=== PATIENT | female | born 1945 | race Caucasian/White ===

== ENCOUNTER 2017-08-02 09:00 | Outpatient (RCR) | payer MEDICARE, SELFPAY ==
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
--- NOTE | 2017-07-08 10:33 | HP.PTREVAL ---
Fernando Robertson, It has been my pleasure to treat LUL MCNEILL over the last 5 visits for RIGHT HIP TROCHANTERIC BURSITIS AND S/P MARILEE THR'S.. Please see the progress note below for an update on the physical therapy plan of care! Subjective: PATIENT REPORTS THE POOL IS HELPING AND SHE REALLY WANTS TO DO MORE. STATES SHE HAS HAD ABOUT 30% IMPROVEMENT AT THIS POINT. SHE REPORTS NO NEW OR INCREASED PAIN. STATES SHE WAS ABLE TO GO WEAVING YESTERDAY, WENT TO [employer] BY HERSELF, HAS BEEN DRIVING AND CAN TOLERATED BEING VERTICAL LONGER INTO THE EVENING. RIGHT HIP PAIN WOKE HER UP SEVERAL TIMES LAST NIGHT BUT OVER-ALL SHE CAN CALM IT DOWN QUICKER AND EVEN THOUGH THE PAIN IS HIGH TODAY SHE STATES IT IS DEFINATELY GETTING BETTER. Objective/Function: THIS PATIENT AMBULATES INDEP'LY INTO PT WITH IMPROVED LIDA AND DECREASED RIGHT LE LIMP COMPARED TO INITIAL EVAL BUT STILL WITH SIGNIFICANT DEVIATION. NO LOB. UPON EXAM, THERE ARE NO OTHER SIGNIFICANT CHANGES BUT SHE IS TOLERATING THER EX IN THE WATER AND REPORTING DECREASED PAIN AND INCREASED FUNCTION. LEFS HAS IMPROVED FROM 22 TO 27. SHE IS HEADED THE RIGHT DIRECTION AFTER 3 POOL SESSIONS BUT STILL HAS SIGNIFICANT SYMPTOMS. Plan Plan: RECOMMEND CONTINUED AQUATIC THERAPY AND PATIENT IS AGREEABLE THEREFORE CONTINUE AQUATIC THERAPY FOR PAIN RELEIF, POSTURE CORRECTION/STRENGTHENING, INSTRUCTION IN APPROPRIATE BODY MECHANICS AND ACTIVITY MODIFICATIONS. DLS STARTING WITH A NEUTRAL SPINE PROGRESSING ROM TOLERATED. MARILEE LE ROM, STRETCHING AND STRENGTHENING. HEP INSTRUCTION. Goals Goal 1:: DECREASE C/O LOW BACK AND MARILEE HIP PAIN Goal Time Frame: 4-6 Weeks Goal Progress: Progressing Goal 2:: IMPROVE STANDING, WALKING, AND ADL FUNCTION Goal Time Frame: 4-6 Weeks Goal Progress: Progressing Goal 3:: INDEP HEP Goal Time Frame: 4-6 Weeks Goal Progress: Progressing Anticipated Interventions Patient/Client Instruction: Educate patient on: Condition, Plan of Care, Risk Factors, Benefits of Fitness Program For the Purpose of:: To improve self management Therapeutic Exercise to Include: Strength training, Balance training, Body mechanics, Postural training, Flexibilty training, Gait and locomotor training, In an aquatic setting, Active ROM, Dynamic Lumbar Stabilization For the Purpose of:: To decrease pain, To improve muscle performance and motor function, To improve ability to perform ADL's, To increase tolerance to activity/condition/position, To improve ability of physical actions for home/community/work/leisure, To improve gait and locomotor functions Please do not hesitate to contact me at [phone] by phone or if you have questions or concerns regarding this new plan of care! Sincerely, Alivia eKy
--- NOTE | 2017-08-02 09:58 | HP.PTDCSUM_ITS ---
HP - PT D/C Summary It has been my pleasure to treat LUL MCNEILL under orders from Fernando Robertson , for the diagnosis of RIGHT HIP TROCHANTERIC BURSITIS AND S/P MARILEE THR'S. for a total of 13 visit(s). Discharge Date: Please see the following information for a summary of their discharge status. - Subjective Subjective: MY BALANCE IS REALLY GOOD NOW. SHE REPORTS SHE HAS IMPROVED A LOT. NOT USING ANY AD'S NOW. SHE REPORTS SHE IS REALLY ENCOURAGED ABOUT THE PROGRESS SHE CAN CONTINUE TO MAKE. SHE DOES STILL GET BACK PAIN TOWARD THE END OF THE DAY UP TO 05/25. PATIENT REPORTS HER KNEES REALLY AREN'T HURTING ANY MORE. HER LEFT HIP ISN'T HURTING ANYMORE EITHER. MAINLY TAKING ASPIRIN AND TYLONOL FOR HER RIGHT HIP PAIN. PATIENT REPORTS SHE HAS MUCH MORE PAINFREE RIGHT HIP ROM NOW. PATIENT STATES SHE FEELS READY TO TRY TO DO HER WATER EX ON HER OWN NOW BUT STILL DECIDING WHERE TO DO IT. PATIENT IS EXPRESSING A LOT OF APPRECIATION FOR THE BENEFIT SHE HAS RECEIVED WITH PHYSICAL THERAPY. - Pain Back Pain Intensity (Out of 10): 0 Hips Pain Intensity (Out of 10): 0 Knees Pain Intensity (Out of 10): 0 - Overall Improvement % Improvement: 70 - Objective Objective/Function: ALL GOALS MET. INDEP GAIT INTO PT WITH MORE ERECT POSTURE, IMPROVED CADANCE AND NO AD'S. MILD LIMP ON RIGHT LE. PATIENT IS ABLE TO INDEP' LY TRANSFER FROM SIT TO STAND WITHOUT UE ASSIST. Motor deficit: MARILEE LE STRENGTH IS GROSSLY 5/5 WITH MMT'ING EXCEPT HIPS GRADED 4/5. NO PAIN WITH TESTING TODAY. ROM deficit: TIGHT MARILEE GASTROC SOLEUS COMPLEX'S AND HIP FLEXORS. Dural Signs: NEGATIVE RIGHT AND POSITIVE LLE. Lumbar mvmt loss: flex - NIL - MILD RIGHT LOW BACK PAIN INITIATING FORWARD FLEXION. ext - MOD. R SG - MOD TO JULIO. L SG - MOD. PROVOKES VERY MILD LEFT ANTERIOR THIGH STRAIN NOT PAIN. Core strength: POOR BUT TOLERATING STRENGTHENING PROGRAM IN THE POOL. Palpation: NO ACUTE TENDERNESS WITH PALPATION OF BACK OR HIPS. ANTICIPATE THAT PATIENT CAN CONTINUE TO IMPROVE WITH INDEP WATER EX AT THIS TIME. LEFS SCORE HAS IMPROVED FROM 27 TO 52. - Goals Goal 1:: DECREASE C/O LOW BACK AND MARILEE HIP PAIN Goal Progress: Goal Met Goal 2:: IMPROVE STANDING, WALKING, AND ADL FUNCTION Goal Progress: Goal Met Goal 3:: INDEP HEP Goal Progress: Goal Met - Plan Plan: D/C TO INDEP POOL PROGRAM. PATIENT IS AGREEABLE TO DISCHARGE. SHE CAN USE OUR POOL A [employer] SNE[employer] MEMBER BUT SHE IS LOOKING FOR ALTERNATIVES TOO. - D/C Information If there are questions or concerns regarding this patient's physical therapy, please feel free to call me at [phone]. Thank you for the referral of this patient. Sincerely, Alivia Key
== END 2017-08-02 19:00 | disposition home or self-care (01) ==
LOC: PT 09:00
PROVIDERS: Family Provider Family Medicine; PCP Family Medicine; Visit Provider Orthopaedic Surgery
DX: M70.61 Trochanteric bursitis, right hip (principal); Z96.643 Presence of artificial hip joint, bilateral
CPT/HCPCS: 97113; 97162; 97164; 97530

== ENCOUNTER → 2018-02-16 08:34 | Outpatient (CLI) | payer MEDICARE, SELFPAY ==
--- NOTE | 2018-02-16 12:36 | NEURO_ITS ---
NCS and/or EMG Patient Report Ordering Doctor: Jewel Vazquez DATE OF SERVICE: 02/16/18 Francoise Rolle is a 72-year-old female presents for electrodiagnostic testing of the lower limbs. She reports numbness and tingling in both legs, primarily below the knees. Symptoms have been present for the past several weeks. He do es report a history of lumbar spinal stenosis. Electrodiagnostic findings: The left common peroneal nerve demonstrates normal distal latency with reduced amplitude and normal conduction velocity. Right common peroneal nerve demonstrates normal distal latency, amplitude and conduction velocity. Tibial motor responses within normal limits bilaterally. Absent right sural and bilateral superficial peroneal responses. Peroneal and tibial F waves within normal limits. H reflex mildly prolonged on the left side. Needle EMG testing reveals 1+ fibrillations in the right peroneus longus, right gastrocnemius and right lumbar lumbosacral paraspinals. Complex repetitive discharges are noted in the left gastrocnemius. Decreased recruitment pattern noted in the gastrocnemius bilaterally with evidence of polyphasic motor units on the right side. Electrodiagnostic impression: This is an abnormal study in the lower limbs. 1. Electrodiagnostic findings demonstrate acute right S1 radiculopathy. Consider correlation with lumbar spine imaging. 2. Electrodiagnostic findings demonstrate peripheral polyneuropathy, with involvement of motor and sensory nerves. If there are any further questions, please do not hesitate to contact me.
== END ==
PROVIDERS: Family Provider Family Medicine; PCP Family Medicine; Referring Provider Family Medicine; Visit Provider Family Medicine
DX: R20.2 Paresthesia of skin (principal)
CPT/HCPCS: 95886; 95912

== ENCOUNTER 2018-02-28 14:30 | Outpatient (RCR) | payer MEDICARE, SELFPAY ==
--- NOTE | 2018-01-19 18:17 | HP.PTEVAL ---
Patient's Visit Information LUL MCNEILL is a 72 year old F referred to Physical Therapy by Gabriel Campbell with a diagnosis of PARESTHESIA OF LOWER LIMB.. Date of Evaluation: 01/19/18 Physical Therapist: Alivia Roach Visit Plan Frequency: 2-3x /Week Duration: 4-6 Weeks Plan: IF CLEARED BY PHYSICIAN: POSTURE CORRECTION/STRENGTHENING, INSTRUCTION IN APPROPRIATE BODY MECHANICS AND ACTIVITY MODIFICATIONS. DLS WITH A NEUTRAL SPINE TOLERATED. MARILEE LE ROM, STRETCHING AND STRENGTHENING. HEP INSTRUCTION. - Subjective Findings: Work/Leisure: RETIRED. Disability: NO. Present symptoms: MARILEE LE NUMBNESS AND TINGLING IN MARILEE THIGHS DOWN TO TOES. TINGLING IN ABDOMEN AND BLADDER AREA ALSO. LOW BACK PAIN/BUT MORE OF A WEAKNESS. BOTH LEGS ALSO FEEL WEAK. NO HIP PAIN. NO UPPER THIGH SX'S NOW. Present since: ABOUT 3 DAYS BEFORE [facility] (ABOUT 16 DAYS AGO). Pain Scale: WORST 6/10, LEAST 2/10. Currently: 2/10. CURRENTLY PATIENT REPORTS SHE FEELS LIKE SHE MIGHT BE WORSENING A LITTLE BIT AND NOT GETTING BETTER. Commenced as a result of: NO APPARENT REASON OTHER THAN BEING VERY VERY BUSY AND STRESSED. Symptoms at onset: BACK WEAKNESS. Worse: WALKING, STANDING. Better: HEAT OR COLD ON LOW BACK AND THIGHS, LYING DOWN. Disturbed sleep: NO. Previous history/Previous treatment: NO BACK SURGERY. NO CHIROPRACTOR. AQUATIC THERAPY FOR BACK AND HIPS. NO ROSENDO'S. Coughing/sneezing/straining: NO. Gait: PATIENT REPORTS THAT ALTHOUGH SHE NOTICED BEING ABLE TO STAND UP STRAIGHTER AROUND THE TIME THIS EPISODE STARTED TO COME ON SHE NOW CAN NOT USE HER LEGS WELL. THEY FEEL REALLY HEAVY LIKE THEY ARE IN SAND AND SHE HAS TO USE THE WALKER (ROLLATOR) WHICH SHE WAS NOT USING BEFORE. Difficulty initiating urinatin: YES. (PATIENT REPORTS SHE TOLD SHAINA IN THE WALK IN CLINIC). Accidents: NO. PATIENT CAN NOT REMEMBER THE LAST TIME SHE FELL. Unexplained weight loss: NO. Imaging: NONE SINCE ONSET OF THIS EPISODE BUT HIP X-RAY EARLIER THIS YEAR. PATIENT IS NOT SURE WHEN/WHAT IMAGING SHE HAS HAD OF LOW BACK SPECIFICALLY BUT SHE WAS TOLD BY THE ORTHO HIP THAT SHE HAS STENOSIS. PMH: PMH/Recent major surgery: MARILEE TKR'S 2014 AND 2016. HTN, ASPRIN FOR H/O BLOOD CLOTS. LE EDEMA THAT SHE TAKES TUMERIC FOR. LEFT THR DEC 2015. RIGHT THR ABOUT 14 YEARS AGO. PATIENT REPORTS SHE IS A MEMBER HERE AT [employer] AND SHE USES OUR POOL. PLOF (Prior Level of Function): INDEP GAIT AND WATER EX PRIOR TO ONSET OF THIS EPISODE AND HER ACTIVITY LEVEL WAS HIGH FOR A 72 YEAR OLD. ACTIVE WITHOUT AD. OTHER: STARTED STERIOD DOSE IZABELLA TODAY PRESCRIBED AT [facility] CL[facility]IC AT [facility]. PATIENT REPORTS SHE WANTS TO BE ABLE TO WALK INDEP'LY AGAIN LIKE SHE COULD BEFORE WHATEVER HAPPENED HAPPENED. - Objective THIS PATIENT AMBULATES INDEP'LY INTO PT WITH A ROLLATOR AND HER . SHE WALKS WITH DECREASED CADANCE AND DECREASED MARILEE STRIDE LENGTH. SHE IS VERY PLEASANT AND COOPERATIVE BUT APPEARS VERY ANXIOUS ABOUT WHAT IS HAPPENING TO HER. 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 SHE IS UNABLE TO TRANSFER FROM SIT TO STAND WITHOUT UE ASSIST BUT WITH HER ARMS TRANSFERS TO STANDING INDEP'LY FAIRLY WELL. STANDING FOR JUST 2 MINUTES OR SO INCREASES HER C/O MARILEE LE NUMBNESS. IT GETS BETTER ALMOST IMMEDIATELY IN SITTING. MARILEE LE LIGHT TOUCH SENSATION APPEARS INTACT AND SYMMETRICAL WITH TESTING. ACTIVE CORRECTION OF HER POSTURE IN SITTING PRODUCES INCREASED C/O TINGLING IN HER LE'S. HER POSTURAL AND CORE STRENGTH ARE POOR MAKING IT DIFFICULT FOR HER TO PERFORM HIP FLEX IN SITTING WITHOUT UE ASSIST. MARILEE ACHILLES REFLEX'S ARE INTACT AND SYMMETRICAL 2/3. I STARTED TO PROCEED CAREFULLY WITH MARILEE LE MMT'ING BUT C/O'S OF MARILEE LE NUMBNESS AND TINGLING INCREASED EASILY AGAIN. AT THIS POINT I STOPPED THE EXAM AND RECOMMENDED FURTHER PHYSICIAN ASSESSMENT BEFORE PROCEEDING WITH PT. PATIENT AND HER WERE AGREEABLE AND ARE CHOOSING TO GO TO URGENT CARE AND WILL LET US KNOW THE OUTCOME. - Goals Goal 1:: DECREASE C/O BACK AND MARILEE LE SX'S Goal Time Frame: 4-6 Weeks Goal 2:: IMPROVE STANDING, WALKING AND ADL FUNCTION Goal Time Frame: 4-6 Weeks Goal 3:: INSTRUCT IN PROPHYLAXIS Goal Time Frame: 4-6 Weeks - Rehabilitation Potential Rehabilitation Potential: Questionable - Anticipated Interventions Patient/Client Instruction: Educate patient on: Condition, Plan of Care, Risk Factors, Benefits of Fitness Program For the Purpose of:: To improve self management Therapeutic Exercise to Include: Strength training, Body mechanics, Postural training, Gait and locomotor training, Dynamic Lumbar Stabilization For the Purpose of:: To improve muscle performance and motor function, To increase tolerance to activity/condition/position, To improve ability of physical actions for home/community/work/leisure, To improve gait and locomotor functions Ultrasound (thermal/non thermal): Yes For the Purpose of:: To decrease pain, To decrease swelling/inflammation, To improve nutrient delivery to tissue Thank you for the opportunity to evaluate your patient. For Medicare and Medicare HMO plans, please review the plan of care and approve it. It will need to be FAXED BACK to us at [phone] for Medicare purposes. For Medicare only, by signing this I certify the plan of care. Please let me know if there are questions or concerns regarding this plan of care. Physician Signature: Date:
--- NOTE | 2018-02-21 13:44 | HP.PTREVAL ---
ANAND Loyd, It has been my pleasure to treat LUL MCNEILL over the last 9 visits for PARESTHESIA OF LOWER LIMB.. Please see the progress note below for an update on the physical therapy plan of care! Subjective: PATIENT REPORTS THEY ARE NOW DIAGNOSING HER WITH A BLOOD DISORDER. CURRENTLY TRACKING HER BLOODWORK. NCT LAST WEEK SHOWING NERVE DAMAGE IN HER LEGS. BONE MARROW TEST LATER THIS MONTH. APPOINTMENT WITH DR. KENDRICK TODAY TO GET RESULT OF NCT AND RECENT X-RAYS. 19 X-RAYS DONE HEAD TO TOE PER PATIENT REPORT LAST WEDNESDAY. DR. GUY SAW HER LAST WEDNESDAY (HEMOTOLOGIST WITH [facility]). PATIENT REPORTS THAT THE PHYSICAL IS KEEPING HER ACTIVE AND SHE FEELS IT IS REALLY HELPING BECAUSE HER LEGS ARE GETTING STRONGER AND SHE IS WALKING BETTER. SHE REPORTS HER LEFT FOOT DOESN'T DRAG VERY MUCH AT ALL ANYMORE EXCEPT MAYBE AT NIGHT IF SHE IS REALLY TIRED. SHE REPORTS SHE IS DOING THE TREADMILL AT HOME TOO. SHE REPORTS DR. GUY TOLD HER TO CONTINUE PT. STARTED B12 SHOTS [address] KENDRICK HAD HER START B12 SHOTS WHEN HE ORDERED THE NERVE CONDUCTION TEST. MODERATE TO SEVERE DEGENERATIVE CHANGES WERE SEEN ON X-RAY NOTED IN JAN 27 2018 PT NOTE. NO MRI (MARILEE THR'S AND TKR'S) OR CAT SCANS ORDERED. NO PAIN BUT LEGS FEEL LIKE SHE IS WALKING ON SAND FILLED BAGS. SHE REPORTS SHE HAS BACK AND MARILEE HIP PAIN OFF AND ON BUT EXTRA STRENGTH TYLONOL MANAGES IT AND SHE DESCRIBES IT AN ARTHRITIC PAIN. PATIENT REPORTS THAT SINCE COMING TO PT HER STANDING AND WALKING TOLERANCE HAS IMPROVED. SHE REPORTS HER BALANCE AND THE STRENGTH IN HER LEGS IS BETTER. SHE DENIES ANY INCREASED SX'S SICNE STARTING PT AND SHE WANTS TO CONTINUE PT. SHE REPORTS THAT EVEN HER NUMBESS HAS IMPROVED. THE OUTSIDE OF HER LEFT LEG IS LESS NUMB AND HER NUMBNESS IS BETTER IN THE MORNINGS. PATIENT REPORTS HER LEG SWELLING IS STAYING THE SAME Objective/Function: PATIENT IS MAKING SLOW PROGRESS TOWARD ALL PT GOALS. SHE AMBULATES INDEP'LY INTO PT TODAY WITH A ROLLATOR. HER CADANCE AND STRIDE LENGTH MARILEE HAVE IMPROVED SINCE INITIAL EVAL. SHE IS UPPER EXTREMITY DEPENDENT TO TRANSFER FROM SIT TO STAND. SHE IS MUCH LESS DEPENDENT ON THE ROLLATOR NOW ALSO. MARILEE LE LIGHT TOUCH IS STILL ALTERED BUT SHE IS STARTING TO BE ABLE TO FEEL MORE IN THE LEFT LATERAL LEG REGION. MMT: RIGHT HIP FLEX 3+/5, KNEE EXT 4-/5, KNEE FLEX 4-/5, ANKLE DORSIFLEX 4-/5. LEFT HIP FLEX 3+/5, KNEE EXT 4-/5, KNEE FLEX 4-/5, ANKLE DORSIFLEX 4-/5. PATIENT IS NOT EXHIBITING FOOT DROP OR ASSYMETRICAL GAIT TODAY. SHE DOES STILL HAVE DECREASED MARILEE SWING PHASES OF GAIT AND MIN DEPENDENCE ON UE'S WITH ROLLATOR ADVANCING LE'S. UNABLE TO SAFELY SLS ON EITHER LE MORE THAN A FEW SECONDS WITHOUT UE ASSIST. PATIENT AGREEABLE WITH CONTINUED USE OF WALKER FOR SAFETY. SHE IS A GOOD CANDIDATE TO CONTINUE AQUATIC THERAPY IF DR. KENDRICK CONCURS. Plan Plan: CONTNUE AQUATIC THERAPY 2-3 TIMES A WEEK X 4-6 WEEKS (10 MORE VISITS). PATIENT IS SEEING DR. KENDRICK TODAY AND WILL BRING NEW PT ORDER TO NEXT VISIT. POSTURE CORRECTION/STRENGTHENING, INSTRUCTION IN APPROPRIATE BODY MECHANICS AND ACTIVITY MODIFICATIONS. DLS WITH A NEUTRAL SPINE TOLERATED. MARILEE LE ROM, STRETCHING AND STRENGTHENING. HEP INSTRUCTION. [ End ] Goals Goal 1:: DECREASE C/O BACK AND MARILEE LE SX'S Goal Time Frame: 4-6 Weeks Goal Progress: Progressing Goal 2:: IMPROVE STANDING, WALKING AND ADL FUNCTION Goal Time Frame: 4-6 Weeks Goal Progress: Progressing Goal 3:: INSTRUCT IN PROPHYLAXIS Goal Time Frame: 4-6 Weeks Goal Progress: Progressing Anticipated Interventions Patient/Client Instruction: Educate patient on: Condition, Plan of Care, Risk Factors, Benefits of Fitness Program For the Purpose of:: To improve self management Therapeutic Exercise to Include: Strength training, Body mechanics, Postural training, Gait and locomotor training, In an aquatic setting, Dynamic Lumbar Stabilization For the Purpose of:: To improve muscle performance and motor function, To increase tolerance to activity/condition/position, To improve ability of physical actions for home/community/work/leisure, To improve gait and locomotor functions Ultrasound (thermal/non thermal): Yes For the Purpose of:: To decrease pain, To decrease swelling/inflammation, To improve nutrient delivery to tissue Please do not hesitate to contact me at [phone] by phone or if you have questions or concerns regarding this new plan of care! Sincerely, Alivia Key, PT, Cert MDT
--- NOTE | 2018-04-06 16:19 | HP.PTDCSUM ---
HP - PT D/C Summary It has been my pleasure to treat LUL MCNEILL under orders from ANAND Loyd, for the diagnosis of PARESTHESIA OF LOWER LIMB. for a total of 11 visit(s). Discharge Date: Please see the following information for a summary of their discharge status. - Subjective Subjective: Feeling about the same. Some greater stenotic pain while on feet. Taking Advil for pain. Has been wearing back brace for support and finding she is able to tolerate ambulation better. - Pain LOW BACK Pain Intensity (Out of 10): 7 RIGHT THIGH Pain Intensity (Out of 10): 0 RIGHT LEG Pain Intensity (Out of 10): 0 LEFT THIGH Pain Intensity (Out of 10): 0 LEFT LEG Pain Intensity (Out of 10): 0 FEET Pain Intensity (Out of 10): 0 ABDOMINAL PAIN Pain Intensity (Out of 10): 0 - Overall Improvement % Improvement: 60 - Objective Objective/Function: Bringing new PT order in today. No reports of elevated symtpoms with today's tasks. Lack of awarness noted again to neutral spine (particularly with NWBing), however improved tolerance to DLP exc today as compared to last AT visit. Pt reports this to be from the STS/squats. Trialed unweighted STS/Squats with double knee to chest - improved tolerance. Finishing Rx with jet massage for pain relief I after Rx. - Goals Goal 1:: DECREASE C/O BACK AND MARILEE LE SX'S Goal Progress: Progressing Goal 2:: IMPROVE STANDING, WALKING AND ADL FUNCTION Goal Progress: Progressing Goal 3:: INSTRUCT IN PROPHYLAXIS Goal Progress: Progressing - Plan Plan: Trial variations of piriformis stretch next d/t demo's of tightness. *Caution STS/Squats - double knee to chest instead* - D/C Information If there are questions or concerns regarding this patient's physical therapy, please feel free to call me at [phone]. Thank you for the referral of this patient. Sincerely, Alivia Key, PT, Cert MDT
== END 2018-02-28 19:00 | disposition home or self-care (01) ==
LOC: PT 14:30
PROVIDERS: Family Provider Family Medicine; PCP Family Medicine; Referring Provider Physician Assistant; Visit Provider Physician Assistant
DX: R20.2 Paresthesia of skin (principal); M54.5 Low back pain
CPT/HCPCS: 97110; 97113; 97163; 97530

== ENCOUNTER 2018-03-13 15:20 | Observation (INO) | payer MEDICARE, SELFPAY ==
[2018-03-13 15:36] VITALS: BP 174/92; PULSE 83; PULSE 87; RESP 14; RESP 19; TEMP 36.1; O2SAT 97; BMI 32.9
--- NOTE | 2018-03-13 15:40 | ED.VISSUMM ---
- ER Visit Summary Date of Service: 03/13/18 Chief Complaint: Bilateral leg weakness History of Present Illness: The patient is a 72 F who states that my legs are not working. It started today. She has been having issues with her legs over the past several months. She is in physical therapy and has been doing pool therapy as well. She has been told that she has spinal stenosis but she has not had an MRI. She had nerve conduction studies which showed a neuropathy at S1 on the right side. She is fallen a couple times at home. She has not hit her head. She is currently off of anti-inflammatories for a bone marrow biopsy that is going to be performed on Wednesday. She has had bilateral hip and knee replacements. She has also had a pulmonary embolism. She is only on aspirin. Physical Examination: Vital signs reviewed. HEENT exam unremarkable. Heart is regular rate and rhythm without murmurs. Lungs are clear to auscultation. Abdomen is soft and nontender. Extremities reveal no edema. Skin exam normal. Neurologic exam shows 1 out of 5 strength of the legs bilaterally from the feet all the way up to the hip joints. She has decreased sensation to needle prick throughout her lower extremities. Test Results: Laboratory studies unremarkable except for chloride of 108. Urinalysis reveals 10-25 white blood cells. Emergency Department Course and Treatment: My concern is that this patient has leg weakness and is falling at home. She may need an MRI of her back to see why she is having so much leg weakness. I do not feel she is safe to go home. I discussed with the hospitalist and the patient will be admitted. I will give her Cipro for her UTI. Treatment Plan: [] Disposition: Admit Impression: Bilateral leg weakness, UTI This note was generated with [employer] dictation software. It may contain incorrect words, spelling, and punctuation that were not noted in review of the chart prior to signing ED Disposition - Plan for ED Patient: Chief Complaint: Weakness Referrals: Jewel Vazquez MD [Primary Care Provider] -
[2018-03-13 15:57] LABS: Absolute Lymphocyte Count 0.97 X10^3/ul (0.83-4.51); Absolute Neutrophil Count 4.2 X10^3/uL (2.0-7.7); Basophil# 0.01 X10^3/uL; Basophil% 0.2 % (0-1); Eosinophil# 0.15 X10^3/uL; Eosinophils% 2.5 % (0-5); Hematocrit 43.1 % (37-47); Hemoglobin 14.3 g/dl (12.0-15.0); Lymphocyte # 0.97 X10^3/ul (4.0); Lymphocyte % 16.1 % (19-41); Mean Corp Hgb Conc 33.2 g/gl (32-36); Mean Corpuscular Hgb 32.4 pg (27.0-32.0); Mean Corpuscular Volume 97.5 fL (81-99); Mean Platelet Vol. 10.1 fl (6.2-12.0); Monocyte# 0.64 X10^3/uL; Monocyte% 10.6 % (0-10); Neutrophil # 4.23 X10^3/uL (2.7-7.7); Neutrophil % 70.3 % (47-70); Platelet Count 155 K/mm3 (150-450); RBC Distribution Width SD 46.5 fl (35.1-43.9); Red Blood Count 4.42 M/mm3 (4.2-5.4)
[2018-03-13 15:58] LABS: POSITIVE COUNT NO; POSITIVE DIFFERENTIAL NO; POSITIVE MORPHOLOGY NO
[2018-03-13 16:10] LABS: Anion Gap 10 (5-15); BUN 17 mg/dL (7-18); BUN/Creat Ratio 20.2 RATIO (10-20); Calcium,Total 9.3 mg/dL (8.5-10.1); Chloride 108 mmol/L (98-107); Creatinine, Serum 0.84 mg/dL (0.55-1.02); EST Glomerular Filtration Rate 70 mL/min (>60); Est Glom Filt Rate - Afr Amer 85 mL/min (>60); Estimated Creatinine Clearance 55.01 ml/min; Glucose 103 mg/dL (74-106); Potassium 3.6 mmol/L (3.5-5.1); Sodium Level 142 mmol/L (136-145)
[2018-03-13 17:14] LABS: Bacteria 0 SEEN /hpf (None Seen); Mucous, Urine 0 SEEN /hpf (<or=2+); Red Blood Cells-Urine 0 SEEN /hpf (0-5)
[2018-03-13 17:18] LABS: Color, Urine Yellow (Yellow); Glucose, Dipstick Normal (Normal); Ketone-Dipstick Negative (Negative); Leukocyte Esterase-Dipstick 500 /ul (Negative); Nitrite-Dipstick Negative (Negative); Occult Blood-Urine Negative /ul (Negative); Protein-Dipstick Negative (Negative); Urine Bilirubin Dipstick Negative (Negative); Urine Urobilinogen Normal (Normal)
[2018-03-13 17:27] LABS: Squamous Epithelial Cells - UA 5-10 SEEN /hpf (5-10); White Blood Cells 10-25 SEEN /hpf (0-5)
[2018-03-13 17:28] LABS: Urine Clarity Sl Cldy (Clear)
[2018-03-13 17:36] VITALS: BP 166/87; PULSE 94; RESP 18; O2SAT 95
[2018-03-13] MEDS: Ciprofloxacin 500 MG Tablet PO (18:04)
--- NOTE | 2018-03-13 18:04 | NURSING ---
med surg bilateral leg weakness [email or web address]
--- NOTE | 2018-03-13 18:15 | HP.PCM_ITS ---
Problem List (1) History of DVT and pulmonary embolism Status: Chronic (2) Factor V Leiden Status: Chronic (3) Benign essential HTN Status: Chronic History of Present Illness Date of Admission: 03/13/18 Chief Complaint: Bilateral leg weakness, tingling and numbness. The patient is a 72 year old F with past medical history as mentioned above presented to the emergency room because of bilateral leg weakness, numbness or tingling. Patient has been having issues with her legs over the past several months and specifically after she had left hip replaced around 1 year ago. After the left hip replacement, patient mentioned that she has been having issues with back pain and bilateral leg weakness. Her main complaint today was bilateral leg numbness and tingling, started several months ago, initially was from the knees down to the feet and over the last several days, it started to go up above both knees and across her back, associated with progressive weakness of both legs equally and symmetrically. Today, she was not able to hold herself up because her legs were so weak. She denied urine or stool incontinence. At this time, she denies any back pain. She denies any mechanical fall or trauma. She mentioned that she thinks that her muscles are weak and achy sometimes. According to the patient and her , she is supposed to have bone marrow biopsy that was recommended by Dr. Hua as outpatient and she stated that Dr. Hua told her that she has some kind of abnormal M protein. Also, she mentioned that she had x-ray of her back as outpatient and she was informed that she has spinal stenosis. In the emergency department, her blood pressure was slightly elevated, other vital signs were stable. Her routine blood work was unremarkable. Serum calcium was normal. Urinalysis revealed cloudy urine, negative for nitrite, positive for leukocyte esterase and there was 10-25 WBCs but no bacteria seen. Past Medical History Past Medical History (Chronic Problems): Chronic Problems History of DVT and pulmonary embolism (Chronic) Factor V Leiden (Chronic) Benign essential HTN (Chronic) Allergies Cephalosporins Allergy (Verified 03/13/18 15:23) Rash codeine Allergy (Verified 03/13/18 15:23) Rash latex Allergy (Verified 03/13/18 15:23) Rash scopolamine Allergy (Verified 03/13/18 15:23) Other warfarin [From Coumadin] Allergy (Verified 03/13/18 15:23) Other Home Medications: Ambulatory Orders Medication Instructions Recorded Aspirin 325 mg PO BID 03/13/18 Furosemide [Lasix] 20 mg PO PRN PRN 03/13/18 Potassium Chloride 20 meq PO DAILY 03/13/18 Triamterene/Hydrochlorothiazid 1 tab PO DAILY 03/13/18 [Triamterene-Hctz 37.5-25 mg Cp] Surgical History: total hip arthroplasty, total knee arthroplasty Psychiatric History: No pertinent psych hx [employer] History: No pertinent [employer] history Lives: Spouse/ Significant Other Smoking Status: Never smoker Alcohol: None Drugs: None - *Family History Maternal History Items: No pertinent history Paternal History Items: No pertinent history Review of Systems Constitutional: Reports: Weakness. Denies: Anorexia, Chills, Fever Eyes: Denies: Blurred vision, Double vision, Drainage, Eyelid Inflammation, Redness HEENT: Denies: Difficulty Hearing, Ear Pain, Eye Pain, Nasal Congestion, Sore Throat Cardiovascular: Denies: Chest Pain, Chest Pressure, Chest Tightness, Edema, Heaviness, Light Headedness, Palpitations, Syncope Respiratory: Denies: Cough, Pleuritic Pain, Shortness of Breath, Sputum production, Wheezing Gastrointestinal: Denies: Abdominal Pain, Constipation, Diarrhea, Nausea, Vomiting Genitourinary: Denies: Dysuria, Frequency, Hematuria Musculoskeletal: Reports: Back Pain, Leg Pain, Muscle pain. Denies: Arm Pain, Foot Pain Skin: Denies: Dryness, Rash Neurological: Reports: Focal weakness, Numbness, Tingling. Denies: Balance problems, Double vision, Change in Speech, Slurred speech, Confusion, Headaches, Incoordination Psychiatric: Denies: Anxiety, Depression Endocrine: Denies: Change in Body Habitus, Polydipsia VTE Information - Inpt Only VTE Present on Admission: No VTE Mechan Device Prophylaxis: None VTE Pharm Prophylaxis ordered?: Yes - Physical Exam General: Alert, Oriented x3, Cooperative, No apparent distress HEENT: Atraumatic, PERRLA, EOMI, Normocephalic Oral: Moist Mucosa Neck: Supple, No JVD, Negative Carotid Bruits, Trachea Midline, Thyroid Normal Size and Texture Lungs: Clear to auscultation, No rhonchi, No wheeze, No rales, Diminished Cardiovascular: Regular rate, Regular Rhythm, Normal S1, Normal S2, No murmurs, PMI Normal Abdomen: Bowel Sounds Present, Soft, Non Tender, Non-Distended, No Hepato- splenomegaly, Obese Extremities: No clubbing, No cyanosis, Edema - Trace edema. Skin: No rashes, No breakdown Lymphatic: No Cervical, Supraclavicular, or Inguinal Adenopathy Neurological: Cranial nerves II-XII grossly intact, - - Power of the upper extremities is 5 x 5. Power of the lower extremities is 4 x 5. Decreased sensation to light touch and pain on both legs. Psych/Mental Status: Normal Affect, Appropriate, Alert and oriented to time, place, person, mood and affect Vital Signs Temp Pulse Resp BP Pulse Ox 97.0 F L 94 18 166/87 H 95 03/13/18 15:36 03/13/18 17:36 03/13/18 17:36 03/13/18 17:36 03/13/18 17:36 Oxygen Delivery Method Room Air Weight: 204 lb Body Mass Index (BMI) 32.9 Laboratory Tests Past 24 Hrs 03/13/18 03/13/18 03/13/18 15:45 15:45 17:10 WBC 6.0 RBC 4.42 Hgb 14.3 Hct 43.1 MCV 97.5 MCH 32.4 H MCHC 33.2 RDW 13.0 RDW Differential 46.5 H Plt Count 155 MPV 10.1 Immature Gran % (Auto) 0.300 Neut % (Auto) 70.3 H Lymph % (Auto) 16.1 L [place] % (Auto) 10.6 H Eos % (Auto) 2.5 Baso % (Auto) 0.2 Absolute Neuts (auto) 4.2 Absolute Lymphs (auto) 0.97 Total Counted Not Reportable Sodium 142 Potassium 3.6 Chloride 108 H Carbon Dioxide 24.0 Anion Gap 10 BUN 17 Creatinine 0.84 Estim Creat Clear Calc 55.01 Est GFR (MDRD) Af Amer 85 Est GFR (MDRD) Non-Af 70 BUN/Creatinine Ratio 20.2 H Glucose 103 Calcium 9.3 Urine Color Yellow Urine Clarity Sl Cldy Urine pH 7.0 Ur Specific [place] 1.010 Urine Protein Negative Urine Glucose (UA) Normal Urine Ketones Negative Urine Occult Blood Negative Urine Nitrite Negative Urine Bilirubin Negative Urine Urobilinogen Normal Ur Leukocyte Esterase 500 H Urine RBC 0 SEEN Urine WBC 10-25 SEEN Ur Squamous Epith Cells 5-10 SEEN Urine Bacteria 0 SEEN Urine Mucus 0 SEEN Assessment/Plan This is a 72 years old female patient presented to the ED because of progressive symmetrical bilateral lower extremity paresthesia and weakness and she is being admitted for evaluation. #1 progressive bilateral symmetrical lower extremity paresthesia/weakness: Unclear etiology. Differential diagnosis could be due to radiculopathy versus primary muscle disease. Patient has been having back pain, had x-ray of her lumbar spine recently as outpatient at another facility and she was informed that she has spinal stenosis. She denied mechanical fall or trauma. She does have weakness of both legs on exam and sensation to light touch and pain is decreased on both legs. Blood pressure slightly elevated, other vital signs are stable. Plan: Admit to [facility] for observation, telemetry, ambulate as tolerated, Tylenol as needed, Zofran as needed, MRI lumbar spine, LFT, creatinine phosphokinase, ESR, CRP, aldolase, TSH, neurology consult, PT OT evaluation and treatment. #2 hypertension: Blood pressure slightly elevated, continue triamterene and HCTZ, start IV hydralazine as needed. #3 factor V Leiden: Patient is allergic to Coumadin, it caused skin necrosis to her. She has been on full dose of aspirin twice daily. #4 history of DVT/PE: Continue aspirin 325 mg p.o. twice daily. #5 DVT prophylaxis: Subcu Lovenox. This note was generated with Lumate dictation software. It may contain incorrect words, spelling, and punctuation that were not noted in checking the note before signing. Code Visit OBSV E&M: 40047 Initial observation care L3
[2018-03-13 18:19] VITALS: BP 159/96; PULSE 95; RESP 18; O2SAT 95
[2018-03-13 19:38] VITALS: BMI 33.8
[2018-03-13 19:41] VITALS: BP 146/99; PULSE 94; RESP 16; TEMP 36.3; O2SAT 92
[2018-03-13 19:52] VITALS: BMI 33.8
[2018-03-13 20:54] LABS: Erythrocyte Sedimentation Rate 5 mm/hr (0-30)
[2018-03-13 20:59] LABS: AST(SGOT) 15 U/L (15-37); Alanine Aminotransfer ALT/SGPT 17 U/L (13-56); Albumin, Serum 3.9 g/dL (3.2-5.0); Alkaline Phosphatase 66 U/L (45-117); Bilirubin, Direct 0.17 mg/dL (0.00-0.30); CPK Total, Creatine Kinase 37 U/L (26-192); CRP < 2.90 mg/L (0.0-3.0); LDH 274 U/L (84-246); Protein, Total 6.9 g/dL (6.4-8.2); Thyroid Stim Hormone (TSH) 1.13 uIU/mL (0.358-3.74)
[2018-03-13 21:11] VITALS: PULSE 98
[2018-03-13] MEDS: Acetaminophen 325 MG Tablet 650 MG PO (21:29)
[2018-03-13] MEDS: Docusate Sodium 100 MG Capsule PO (21:29)
[2018-03-14] VITALS (8 sets, daily range): BP systolic 134–172; BP diastolic 66–85; PULSE 70–109; RESP 16–18; TEMP 36.4–36.9; O2SAT 93–95
[2018-03-14] MEDS: Acetaminophen 325 MG Tablet 650 MG PO ×4 (03:43→23:26)
[2018-03-14] MEDS: Enoxaparin 40 MG/0.4 ML Syringe SC (08:35)
[2018-03-14] MEDS: Docusate Sodium 100 MG Capsule PO (08:35)
[2018-03-14] MEDS: Triamterene 37.5MG/Hctz 25MG Capsule 1 CAP PO (08:35)
[2018-03-14] MEDS: Aspirin 325 MG Tablet PO ×2 (08:35→17:26)
--- NOTE | 2018-03-14 09:00 | MRI_ITS ---
We are attempting to reach Cory Pierre MD to discuss findings. An addendum with communication details will be sent when the communication is complete. HISTORY: Bilateral leg weakness and paresthesia since December. EXAM/TECHNIQUE: MR Spine Lumbar W/O Contrast: COMPARISON: None. FINDINGS: # of images incl. paperwork: 120 The visualized portion of the distal thoracic spinal cord, and the conus medullaris, have abnormal increased STIR and T2 signal, and are mildly expanded. The conus terminates at the level of the mid L2 vertebral body. Small intradural, extra medullary serpiginous low signal structures along the posterior margin of the distal thoracic spinal cord are suspicious for flow voids. No fracture or acute signal changes in the vertebrae. Mild degenerative malalignments include 3 mm degenerative anterolisthesis of L3 on L4, and 6 mm degenerative anterolisthesis of L4 on L5. Alignment is otherwise anatomic. Multilevel disc and facet degeneration is most severe in the lower lumbar spine with diffuse disc desiccation and mild degenerative irregularity of the endplates in the upper lumbar spine, becoming quite severe at L4-5 and L5-S1 including partial bony fusion of the L5-S1 disc. At L1-2, small diffuse disc bulge and moderate bilateral facet degeneration cause only mild narrowing. At L2-3, moderate diffuse disc bulge and severe bilateral facet degeneration causes mild to moderate spinal canal and mild bilateral foraminal narrowing with no definite evidence of nerve root impingement. At L3-4, mild anterolisthesis, diffuse disc bulge, and severe bilateral facet degeneration causes high-grade narrowing of the bilateral subarticular zones, moderate crowding of the cauda equina, and mild bilateral foraminal narrowing. At L4-5, anterolisthesis with unroofing of the disc and marked bilateral facet degeneration causes moderate narrowing of the bilateral subarticular zones of mild bilateral foraminal narrowing. At L5-S1, there is only mild narrowing. No acute findings in the paraspinal soft tissues. Partially visible in the right upper abdomen is a large cystic mass, greater than 12 cm in diameter, possibly within the liver but difficult to localize. MRI/Spine Lumbar (Routine) IMPRESSION: Mild expansion and increased T2 signal within the partially visible portion of the lower thoracic spinal cord and extending into the conus medullaris. 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 Postinfectious or inflammatory myelitis, and demyelination, are possible but less likely. This warrants more definitive workup under the supervision of a neurologist and/or neurosurgeon or interventional neuroradiologist. Reasonable next steps would include MRI of the thoracic and lumbar spine with and without gadolinium to more completely visualize this process. Given suspicion for spinal dural arteriovenous fistula, some facilities would perform CTA of the thoracic and lumbar spine, though some prefer catheter angiography. Multilevel degenerative changes are described in detail above although I suspect the abnormality of the spinal cord and conus are the etiology for the patient's symptoms. A large cystic mass in the right upper abdomen, possibly but not definitively a large hepatic cyst, is partially visible. Comparison with previous abdominal imaging will be helpful. Consider follow-up ultrasound or CT of the liver/abdomen. at 1025 Reported and signed by: Raz Caba MD Electronically Signed: Raz Caba, at 10:24 EST Tel , Service support ,
--- NOTE | 2018-03-14 10:50 | MRI_ITS ---
HISTORY: Bilateral leg numbness. Abnormal lumbar spine MRI. EXAM/TECHNIQUE: MR Spine Thoracic WO/W Contrast: 9 cc Gadavist administered intravenously. COMPARISON: Lumbar spine MRIs earlier same date. FINDINGS: # of images incl. paperwork: 224 Again demonstrated is abnormal increased T2/STIR signal within and expansion of the mid to distal thoracic spinal cord and conus. The signal abnormality begins at the level of the mid T7 vertebral body. The area of cord signal abnormality shows faint, mild, patchy abnormal enhancement. The more cephalad thoracic spine has normal contour and signal. No other abnormal enhancement. Again demonstrated are small serpiginous flow voids adjacent to the mid and distal thoracic spine and conus likely mildly prominent veins. Prominent degenerative changes partially visible in the lower cervical spine with at least moderate and possibly high-grade spinal canal narrowing. Less prominent degenerative changes thoracic spine. Scattered incidental small vertebral body hemangiomas. A large cyst in the right abdomen either arising from the liver or right kidney is partially visible. Mild cardiomegaly. MRI/Spine Thoracic W/WO Contrast IMPRESSION: The distal thoracic spinal cord and conus show mild expansion and edema and faint patchy abnormal enhancement. This begins at the level of T7. 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 Postinfectious or inflammatory myelitis possible but less likely. The lack of focal enhancements and the diffuse nature of the edema makes neoplasm unlikely. Recommend evaluation by neurosurgery and/or interventional neuroradiology for catheter angiography which is the most definitive way to diagnose, and can sometimes be used to treat, spinal dural arteriovenous fistula. CTA of the thoracic and lumbar spine can also occasionally identify the fistula although I defer to the treating subspecialist regarding obtaining CTA versus proceeding directly to catheter angiography. Incidental note is made of a large cyst in the right upper abdomen, probably either hepatic or renal in origin though not definitively evaluated, and mild cardiomegaly. at 1326 Reported and signed by: Raz Caba MD Electronically Signed: Raz Caba, at 13:25 EST Tel , Service support ,
--- NOTE | 2018-03-14 10:50 | MRI_ITS ---
HISTORY: Low back pain and bilateral leg numbness. Noncontrast MRI lumbar spine revealed abnormal distal thoracic spine and conus. EXAM/TECHNIQUE: MR Spine Lumbar W/ Contrast: 9 mL of Gadavist administered intravenously. COMPARISON: Noncontrast MRI lumbar spine earlier same date. FINDINGS: # of images incl. paperwork: 68 The distal thoracic spine and conus show patchy mild but diffuse enhancement corresponding to the area of edema and expansion seen on the noncontrast study. Prominent small adjacent intradural extra medullary blood vessels again demonstrated. No other abnormal enhancement. The right upper quadrant cystic lesion partially visible on the previous study appears more closely related to the right kidney and, while still not definitively evaluated, is most likely a large right renal cyst. Underlying degenerative changes are similar to the noncontrast study performed earlier today, please see that report for detailed discussion. MRI/Spine Lumbar WITH Contrast IMPRESSION: Patchy enhancement of the distal thoracic spinal cord and conus corresponding to the area of abnormal signal and mild expansion on the noncontrast study. 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 Post infectious or inflammatory myelitis, demyelination less likely etiologies. The nonfocal nature of the enhancement and edema argues against neoplasm which is unlikely. Recommend referral to neurosurgery or interventional neuroradiology for evaluation for catheter angiography which is the most definitive study for diagnosing and treating spinal dural arteriovenous fistula. Some providers also obtain CTA of the thoracic and lumbar spine although I would defer to the treating subspecialist. at 1314 Reported and signed by: Raz Caba MD Electronically Signed: Raz Caba, at 13:13 EST Tel , Service support ,
--- NOTE | 2018-03-14 10:53 | CASEMGMT ---
RN CM Assessment Presentation: Bilateral leg weakness, tingling and numbness. Hx of back pain and leg weakness related to spinal stenosis progressive over past few days. Intro role of CM and purpose of RN CM assessment to pt and her . PCP:Dr. Vazquez Specialists: Dr. Hua Preferred [facility]acy: [facility] Insurance: [employer] [facility] Prescription Benefit: yes LNOK: Living Arrangements: first floor set up, 2 steps into home but has ordered ramp. is able to assist pt with ADL's and care needs. Pt is able to participate in self care, but safety issues due to back pain and leg weakness. Transportation: is able to drive. DME: Walker, shower chair, ramp being ordered from entry to home. States no grab bars. May need wheelchair for around home as pt is fearful of falling with leg weakness. . No oxygen equipment @ home. [facility] [facility] preferred and is [employer] per [facility] PPO website. HHC: Pt is agreeable to [facility]. Has had HHS in past through [facility]-unsure of name. RN CM requested they find name of company if they would like to use again and HHS is ordered on ne DC PLAN: undetermined. PT/OT evaluations pending. May like for home on dc.
--- NOTE | 2018-03-14 11:02 | CASEMGMT ---
Tertiary facilities in-network with insurance: [facility], [facility], [facility], [facility]
--- NOTE | 2018-03-14 11:11 | PCM.PN.HOSP ---
Vitals/I&O's: Vital Signs Temp Pulse Resp BP Pulse Ox 97.5 F L 75 18 172/80 H 94 03/14/18 08:35 03/14/18 08:35 03/14/18 08:35 03/14/18 08:35 03/14/18 08:35 Oxygen Delivery Method Room Air Weight: 92.2 kg Body Mass Index (BMI) 33.8 Intake and Output for Last 24 Hours 03/12/18 03/13/18 03/14/18 23:59 23:59 23:59 Intake Total 280 / 280 Output Total 750 / 750 Balance -470 / -470 Laboratory Results 03/13/18 15:45: WBC 6.0, RBC 4.42, Hgb 14.3, Hct 43.1, MCV 97.5, MCH 32.4 H, MCHC 33.2, RDW 13.0, RDW Differential 46.5 H, Plt Count 155, MPV 10.1, Immature Gran % (Auto) 0.300, Neut % (Auto) 70.3 H, Lymph % (Auto) 16.1 L, [place] % (Auto) 10.6 H, Eos % (Auto) 2.5, Baso % (Auto) 0.2, Absolute Neuts (auto) 4.2, Absolute Lymphs (auto) 0.97, Total Counted Not Reportable 03/13/18 15:45: Sodium 142, Potassium 3.6, Chloride 108 H, Carbon Dioxide 24.0, Anion Gap 10, BUN 17, Creatinine 0.84, Estim Creat Clear Calc 55.01, Est GFR (MDRD) Af Amer 85, Est GFR (MDRD) Non-Af 70, BUN/Creatinine Ratio 20.2 H, Glucose 103, Calcium 9.3 03/13/18 15:45: ESR 5 03/13/18 17:10: Urine Color Yellow, Urine Clarity Sl Cldy, Urine pH 7.0, Ur Specific [place] 1.010, Urine Protein Negative, Urine Glucose (UA) Normal, Urine Ketones Negative, Urine Occult Blood Negative, Urine Nitrite Negative, Urine Bilirubin Negative, Urine Urobilinogen Normal, Ur Leukocyte Esterase 500 H, Urine RBC 0 SEEN, Urine WBC 10-25 SEEN, Ur Squamous Epith Cells 5-10 SEEN, Urine Bacteria 0 SEEN, Urine Mucus 0 SEEN 03/13/18 19:37: Total Bilirubin 0.60, Direct Bilirubin 0.17, AST 15, ALT 17, Alkaline Phosphatase 66, Lactate Dehydrogenase 274 H, Total Creatine Kinase 37, C-React Prot Ext Range < 2.90, Total Protein 6.9, Albumin 3.9, Globulin 3.0, TSH 1.13 03/13/18 20:30: Aldolase Pending Current Medications Acetaminophen (Tylenol) 650 mg PO Q6H PRN PRN PRN Reason: Fever, headache, pain Last Admin: 03/14/18 03:43 Dose: 650 mg [facility] Last Admin: 03/14/18 08:35 Dose: 325 mg Docusate Sodium (Colace) 100 mg PO BID [facility] Last Admin: 03/14/18 08:35 Dose: 100 mg Enoxaparin Sodium (Lovenox) 40 mg SC DAILY@1000 [facility] Last Admin: 03/14/18 08:35 Dose: 40 mg Hydralazine HCl (Apresoline Iv) 5 mg IV Q6H PRN PRN PRN Reason: for SBP>160 Magnesium Hydroxide (Milk Of Magnesia) 30 ml PO DAILY PRN PRN PRN Reason: Constipation Ondansetron HCl (Zofran) 4 mg IV Q8H PRN PRN PRN Reason: NAUSEA/VOMITING Potassium Bicarb/Potassium Chloride (Potassium Chl 25 Meq Eff (For Liquid)) [facility] Last Admin: 03/14/18 08:35 Dose: 25 meq Sodium Chloride () 5 - 15 ml IV UD PRN PRN Reason: SALINE FLUSH Triamterene/HCTZ (Dyazide (G)) 1 cap PO DAILY [facility] Last Admin: 03/14/18 08:35 Dose: 1 cap Zolpidem Tartrate (Ambien (Generic)) 5 mg PO QHS PRN PRN PRN Reason: INSOMNIA Medical Necessity - Tobacco Use Smoking Status: Former smoker
--- NOTE | 2018-03-14 14:04 | DCINST_ITS ---
- Discharge Diagnoses Current Active Problems: Current Active and Chronic Problems History of DVT and pulmonary embolism (Chronic) Factor V Leiden (Chronic) Allergies/Adverse Reactions: Allergies Cephalosporins Allergy (Verified 03/13/18 15:23) Rash codeine Allergy (Verified 03/13/18 15:23) Rash latex Allergy (Verified 03/13/18 15:23) Rash scopolamine Allergy (Verified 03/13/18 15:23) Other warfarin [From Coumadin] Allergy (Verified 03/13/18 15:23) Other Medications to take at Discharge Acetaminophen [Tylenol Extra Strength] 1,000 mg PO Q6H PRN PRN 03/13/18 Aspirin 325 mg PO BID 03/13/18 Ergocalciferol [Vitamin D] 50,000 unit PO [place] 03/13/18 Furosemide [Lasix] 20 mg PO PRN PRN 03/13/18 Potassium Chloride 20 meq PO DAILY 03/13/18 Triamterene/Hydrochlorothiazid [Triamterene-Hctz 37.5-25 mg Cp] 1 tab PO DAILY 03/13/18 Primary Care Physician: Jewel Vazquez MD [Primary Care Provider] - Test Results: Test results from this visit will be discussed in further detail at your follow- up appointment, if applicable. Proposed Discharge Date: 03/14/18
--- NOTE | 2018-03-14 14:08 | DS.PCM_ITS ---
Discharge Date and Diagnosis - Problem List Patient Problems: Active and Suspected Problems Bilateral leg weakness (Acute) Date of Admission: 03/13/18 Date of Discharge: 03/14/18 - Primary Discharge Diagnosis Active and Suspected Problems Bilateral leg weakness (Acute) - Secondary Discharge Diagnosis Chronic Problems History of DVT and pulmonary embolism (Chronic) Factor V Leiden (Chronic) Benign essential HTN (Chronic) Hospital Course and Treatment Imaging Results: Clinical Impression(s) from Imaging Studies Lumbar Spine MRI 03/14/18 09:00 IMPRESSION: Mild expansion and increased T2 signal within the partially visible portion of the lower thoracic spinal cord and extending into the conus medullaris. 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 Postinfectious or inflammatory myelitis, and demyelination, are possible but less likely. This warrants more definitive workup under the supervision of a neurologist and/or neurosurgeon or interventional neuroradiologist. Reasonable next steps would include MRI of the thoracic and lumbar spine with and without gadolinium to more completely visualize this process. Given suspicion for spinal dural arteriovenous fistula, some facilities would perform CTA of the thoracic and lumbar spine, though some prefer catheter angiography. Multilevel degenerative changes are described in detail above although I suspect the abnormality of the spinal cord and conus are the etiology for the patient's symptoms. A large cystic mass in the right upper abdomen, possibly but not definitively a large hepatic cyst, is partially visible. Comparison with previous abdominal imaging will be helpful. Consider follow-up ultrasound or CT of the liver/abdomen. at 1025 Reported and signed by: Raz Caba MD Electronically Signed: Raz Caba, at 10:24 EST Tel , Service support , ADDENDUM: 03/14/18 9330 IMPRESSION: Mild expansion and increased T2 signal within the partially visible portion of the lower thoracic spinal cord and extending into the conus medullaris. 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 Postinfectious or inflammatory myelitis, and demyelination, are possible but less likely. This warrants more definitive workup under the supervision of a neurologist and/or neurosurgeon or interventional neuroradiologist. Reasonable next steps would include MRI of the thoracic and lumbar spine with and without gadolinium to more completely visualize this process. Given suspicion for spinal dural arteriovenous fistula, some facilities would perform CTA of the thoracic and lumbar spine, though some prefer catheter angiography. Multilevel degenerative changes are described in detail above although I suspect the abnormality of the spinal cord and conus are the etiology for the patient's symptoms. A large cystic mass in the right upper abdomen, possibly but not definitively a large hepatic cyst, is partially visible. Comparison with previous abdominal imaging will be helpful. Consider follow-up ultrasound or CT of the liver/abdomen. at 1025 Reported and signed by: Raz Caba MD N.B. : Dr Gabby MD, confirmed on 03/14/2018 14:02:02 (ET) that the referring physician received the results and did not require a verbal consultation. Electronically Signed: Raz Caba, at 10:24 EST Tel , Service support , Lumbar Spine MRI 03/14/18 10:50 IMPRESSION: Patchy enhancement of the distal thoracic spinal cord and conus corresponding to the area of abnormal signal and mild expansion on the noncontrast study. 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 Post infectious or inflammatory myelitis, demyelination less likely etiologies. The nonfocal nature of the enhancement and edema argues against neoplasm which is unlikely. Recommend referral to neurosurgery or interventional neuroradiology for evaluation for catheter angiography which is the most definitive study for diagnosing and treating spinal dural arteriovenous fistula. Some providers also obtain CTA of the thoracic and lumbar spine although I would defer to the treating subspecialist. at 1314 Reported and signed by: Raz Caba MD Electronically Signed: Raz Caba, at 13:13 EST Tel , Service support , Thoracic Spine MRI 03/14/18 10:50 IMPRESSION: The distal thoracic spinal cord and conus show mild expansion and edema and faint patchy abnormal enhancement. This begins at the level of T7. 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 Postinfectious or inflammatory myelitis possible but less likely. The lack of focal enhancements and the diffuse nature of the edema makes neoplasm unlikely. Recommend evaluation by neurosurgery and/or interventional neuroradiology for catheter angiography which is the most definitive way to diagnose, and can sometimes be used to treat, spinal dural arteriovenous fistula. CTA of the thoracic and lumbar spine can also occasionally identify the fistula although I defer to the treating subspecialist regarding obtaining CTA versus proceeding directly to catheter angiography. Incidental note is made of a large cyst in the right upper abdomen, probably either hepatic or renal in origin though not definitively evaluated, and mild cardiomegaly. at 1326 Reported and signed by: Raz Caba MD Electronically Signed: Raz Caba, at 13:25 EST Tel , Service support , Summary of Care Provided: The patient is a 72 year old F presented with bilateral lower extremity weakness as well as paresthesias 1. Bilateral lower extremity paresthesias patient admitted to a monitored bed imaging studies ordered demonstrated suspicion for spinal dural AV fistula. Neurology consulted case discussed with Dr. Lea who recommended for patient to be transferred to a tertiary care center for spinal angiogram hypertension-blood pressure controlled, home medications continued with dose adjustment as needed call was placed patient opted for transfer to [facility] for subsequent evaluation 2. History of factor V Leyden mutation with previous PE and DVT patient apparently did not tolerate Coumadin due to skin necrosis has subsequently been placed on full dose aspirin 325 mg p.o. twice daily 3. Hypertension-blood pressure controlled, home medications continued with dose adjustment as needed Patient Problems: Active and Suspected Problems Bilateral leg weakness (Acute) - Physical Exam HEENT: Atraumatic Neck: Supple Lungs: Clear to auscultation Cardiovascular: Regular rate, Regular Rhythm Psych/Mental Status: Normal Affect Vital Signs Temp Pulse Resp BP Pulse Ox 97.5 F L 75 18 172/80 H 94 03/14/18 08:35 03/14/18 08:35 03/14/18 08:35 03/14/18 08:35 03/14/18 08:35 Oxygen Delivery Method Room Air Weight: 92.2 kg Body Mass Index (BMI) 33.8 Intake and Output for Last 24 Hours 03/12/18 03/13/18 03/14/18 23:59 23:59 23:59 Intake Total 280 / 280 Output Total 750 / 750 Balance -470 / -470 Laboratory Tests Past 24 Hrs 03/13/18 03/13/18 03/13/18 15:45 15:45 15:45 WBC 6.0 RBC 4.42 Hgb 14.3 Hct 43.1 MCV 97.5 MCH 32.4 H MCHC 33.2 RDW 13.0 RDW Differential 46.5 H Plt Count 155 MPV 10.1 Immature Gran % (Auto) 0.300 Neut % (Auto) 70.3 H Lymph % (Auto) 16.1 L [place] % (Auto) 10.6 H Eos % (Auto) 2.5 Baso % (Auto) 0.2 Absolute Neuts (auto) 4.2 Absolute Lymphs (auto) 0.97 Total Counted Not Reportable ESR 5 Sodium 142 Potassium 3.6 Chloride 108 H Carbon Dioxide 24.0 Anion Gap 10 BUN 17 Creatinine 0.84 Estim Creat Clear Calc 55.01 Est GFR (MDRD) Af Amer 85 Est GFR (MDRD) Non-Af 70 BUN/Creatinine Ratio 20.2 H Glucose 103 Calcium 9.3 Total Bilirubin Direct Bilirubin AST ALT Alkaline Phosphatase Lactate Dehydrogenase Total Creatine Kinase C-React Prot Ext Range Total Protein Albumin Globulin Aldolase TSH Urine Color Urine Clarity Urine pH Ur Specific [place] Urine Protein Urine Glucose (UA) Urine Ketones Urine Occult Blood Urine Nitrite Urine Bilirubin Urine Urobilinogen Ur Leukocyte Esterase Urine RBC Urine WBC Ur Squamous Epith Cells Urine Bacteria Urine Mucus 03/13/18 03/13/18 03/13/18 17:10 19:37 20:30 WBC RBC Hgb Hct MCV MCH MCHC RDW RDW Differential Plt Count MPV Immature Gran % (Auto) Neut % (Auto) Lymph % (Auto) [place] % (Auto) Eos % (Auto) Baso % (Auto) Absolute Neuts (auto) Absolute Lymphs (auto) Total Counted ESR Sodium Potassium Chloride Carbon Dioxide Anion Gap BUN Creatinine Estim Creat Clear Calc Est GFR (MDRD) Af Amer Est GFR (MDRD) Non-Af BUN/Creatinine Ratio Glucose Calcium Total Bilirubin 0.60 Direct Bilirubin 0.17 AST 15 ALT 17 Alkaline Phosphatase 66 Lactate Dehydrogenase 274 H Total Creatine Kinase 37 C-React Prot Ext Range < 2.90 Total Protein 6.9 Albumin 3.9 Globulin 3.0 Aldolase Pending TSH 1.13 Urine Color Yellow Urine Clarity Sl Cldy Urine pH 7.0 Ur Specific [place] 1.010 Urine Protein Negative Urine Glucose (UA) Normal Urine Ketones Negative Urine Occult Blood Negative Urine Nitrite Negative Urine Bilirubin Negative Urine Urobilinogen Normal Ur Leukocyte Esterase 500 H Urine RBC 0 SEEN Urine WBC 10-25 SEEN Ur Squamous Epith Cells 5-10 SEEN Urine Bacteria 0 SEEN Urine Mucus 0 SEEN Discharge Diet: No Restrictions Home Medications: Medications to take at Discharge Acetaminophen [Tylenol Extra Strength] 1,000 mg PO Q6H PRN PRN 03/13/18 Aspirin 325 mg PO BID 03/13/18 Ergocalciferol [Vitamin D] 50,000 unit PO MCCLELLAN 03/13/18 Furosemide [Lasix] 20 mg PO PRN PRN 03/13/18 Potassium Chloride 20 meq PO DAILY 03/13/18 Triamterene/Hydrochlorothiazid [Triamterene-Hctz 37.5-25 mg Cp] 1 tab PO DAILY 03/13/18 Primary Care Physician: Jewel Vazquez MD [Primary Care Provider] - Disposition: Acute care Hospital - [facility] Minutes spent on discharge:: 45 Patient Condition:: Stable Medical Necessity - Tobacco Use Smoking Status: Former smoker Meaningful Use Info Meaningful Use Diagnoses (Choose all that apply): None applicable Code Visit Inpatient E&M: 03204 Subs Hosp L2
--- NOTE | 2018-03-14 14:54 | PCM.CONS.GEN ---
Problem List (1) Numbness Status: Acute (2) Numbness and tingling of both feet Status: Acute (3) Bilateral leg weakness Status: Acute Reason for Consult Date of Consultation: 03/14/18 Reason for Consultation: LE weakness and numbness History of Present Illness: The patient is a 72 year old F with PMH HTN, H?o DVT/PE, factor V laden mutation admitted with bilateral LE weakness and numbness. Per patient she started having numbness in the feet for about a year, was progressive, but then since December 2017, the numbness worsened and she felt numb in both legs, felt her legs were heavy and weak, has been getting PT for the same, symptoms have been getting worse in the past 2 months or so, started using walker in the past 6-8 weeks, was seeing her PCP Dr. Vazquze who gave her oral steroids which seemed to help, had about 4 falls since the beginning of symptoms, in the last year or so, had a fall yesterday (03/13/18) and felt weak in the legs so was admitted for further evaluation. Per patient she had couple episodes of urinary incontinence. She has been needing assistance for her ADLs. 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 MRI Thoracic and Lumbar spine w/w/o contrast done by hospitalist on admission reported to show T2 hyperintensity with mild expansion (edema) in the lower thoracic spinal cord with patchy enhancement, extending into the conus medullaris, small flow voids adjacent to the distal thoracic spinal cord raise suspicion for spinal dural AV fistulas, postinfectious, inflammatory myelitis/demyelination are possible but less likely. [] Past Medical History Past Medical History (Chronic Problems): Chronic Problems History of DVT and pulmonary embolism (Chronic) Factor V Leiden (Chronic) Benign essential HTN (Chronic) Allergies Cephalosporins Allergy (Verified 03/13/18 15:23) Rash codeine Allergy (Verified 03/13/18 15:23) Rash latex Allergy (Verified 03/13/18 15:23) Rash scopolamine Allergy (Verified 03/13/18 15:23) Other warfarin [From Coumadin] Allergy (Verified 03/13/18 15:23) Other Home Medications: Ambulatory Orders Medication Instructions Recorded Acetaminophen [Tylenol Extra 1,000 mg PO Q6H PRN PRN 03/13/18 Strength] Aspirin 325 mg PO BID 03/13/18 Ergocalciferol [Vitamin D] 50,000 unit PO MCCLELLAN 03/13/18 Furosemide [Lasix] 20 mg PO PRN PRN 03/13/18 Potassium Chloride 20 meq PO DAILY 03/13/18 Triamterene/Hydrochlorothiazid 1 tab PO DAILY 03/13/18 [Triamterene-Hctz 37.5-25 mg Cp] Surgical History: total hip arthroplasty, total knee arthroplasty Psychiatric History: No pertinent psych hx INTELLIGENCE DIRECTOR History: No pertinent INTELLIGENCE DIRECTOR history Lives: Spouse/ Significant Other Smoking Status: Former smoker Alcohol: None Drugs: None - *Family History Maternal History Items: No pertinent history Paternal History Items: No pertinent history Review of Systems Constitutional: Reports: - - complete ROS negative except as documented in HPI Patient Problems: Active and Suspected Problems Numbness (Acute) Numbness and tingling of both feet (Acute) Bilateral leg weakness (Acute) - Physical Exam General: Alert HEENT: Normocephalic Neck: Supple Lungs: Normal air movement Cardiovascular: Normal S1, Normal S2 Abdomen: Bowel Sounds Present Extremities: No cyanosis Neurological: - - consious, alert, AoAx3, Cn 2-12 grossly intact, power 5/5 both UE, 4/5 both LE, Reflexes ++ B/L B/S/T and + K/A, no clonus, sensory loss to light touch both LE below groin, gait deferred, plantars B/L mute Psych/Mental Status: Normal Affect Vital Signs Temp Pulse Resp BP Pulse Ox 97.5 F L 75 18 172/80 H 94 03/14/18 08:35 03/14/18 08:35 03/14/18 08:35 03/14/18 08:35 03/14/18 08:35 Oxygen Delivery Method Room Air Weight: 92.2 kg Body Mass Index (BMI) 33.8 Intake and Output for Last 24 Hours 03/12/18 03/13/18 03/14/18 23:59 23:59 23:59 Intake Total 280 / 280 Output Total 750 / 750 Balance -470 / -470 Laboratory Tests Past 24 Hrs 03/13/18 03/13/18 03/13/18 15:45 15:45 15:45 WBC 6.0 RBC 4.42 Hgb 14.3 Hct 43.1 MCV 97.5 MCH 32.4 H MCHC 33.2 RDW 13.0 RDW Differential 46.5 H Plt Count 155 MPV 10.1 Immature Gran % (Auto) 0.300 Neut % (Auto) 70.3 H Lymph % (Auto) 16.1 L [place] % (Auto) 10.6 H Eos % (Auto) 2.5 Baso % (Auto) 0.2 Absolute Neuts (auto) 4.2 Absolute Lymphs (auto) 0.97 Total Counted Not Reportable ESR 5 Sodium 142 Potassium 3.6 Chloride 108 H Carbon Dioxide 24.0 Anion Gap 10 BUN 17 Creatinine 0.84 Estim Creat Clear Calc 55.01 Est GFR (MDRD) Af Amer 85 Est GFR (MDRD) Non-Af 70 BUN/Creatinine Ratio 20.2 H Glucose 103 Calcium 9.3 Total Bilirubin Direct Bilirubin AST ALT Alkaline Phosphatase Lactate Dehydrogenase Total Creatine Kinase C-React Prot Ext Range Total Protein Albumin Globulin Aldolase TSH Urine Color Urine Clarity Urine pH Ur Specific [place] Urine Protein Urine Glucose (UA) Urine Ketones Urine Occult Blood Urine Nitrite Urine Bilirubin Urine Urobilinogen Ur Leukocyte Esterase Urine RBC Urine WBC Ur Squamous Epith Cells Urine Bacteria Urine Mucus 03/13/18 03/13/18 03/13/18 17:10 19:37 20:30 WBC RBC Hgb Hct MCV MCH MCHC RDW RDW Differential Plt Count MPV Immature Gran % (Auto) Neut % (Auto) Lymph % (Auto) [place] % (Auto) Eos % (Auto) Baso % (Auto) Absolute Neuts (auto) Absolute Lymphs (auto) Total Counted ESR Sodium Potassium Chloride Carbon Dioxide Anion Gap BUN Creatinine Estim Creat Clear Calc Est GFR (MDRD) Af Amer Est GFR (MDRD) Non-Af BUN/Creatinine Ratio Glucose Calcium Total Bilirubin 0.60 Direct Bilirubin 0.17 AST 15 ALT 17 Alkaline Phosphatase 66 Lactate Dehydrogenase 274 H Total Creatine Kinase 37 C-React Prot Ext Range < 2.90 Total Protein 6.9 Albumin 3.9 Globulin 3.0 Aldolase Pending TSH 1.13 Urine Color Yellow Urine Clarity Sl Cldy Urine pH 7.0 Ur Specific [place] 1.010 Urine Protein Negative Urine Glucose (UA) Normal Urine Ketones Negative Urine Occult Blood Negative Urine Nitrite Negative Urine Bilirubin Negative Urine Urobilinogen Normal Ur Leukocyte Esterase 500 H Urine RBC 0 SEEN Urine WBC 10-25 SEEN Ur Squamous Epith Cells 5-10 SEEN Urine Bacteria 0 SEEN Urine Mucus 0 SEEN Assessment/Plan All Active Problems Numbness (Acute) Numbness and tingling of both feet (Acute) Bilateral leg weakness (Acute) The patient is a 72 year old F with PMH HTN, H?o DVT/PE, factor V laden mutation admitted with bilateral LE weakness and numbness. Per patient she started having numbness in the feet for about a year, was progressive, but then since December 2017, the numbness worsened and she felt numb in both legs, felt her legs were heavy and weak, has been getting PT for the same, symptoms have been getting worse in the past 2 months or so, started using walker in the past 6-8 weeks, was seeing her PCP Dr. Vazquez who gave her oral steroids which seemed to help, had about 4 falls since the beginning of symptoms, in the last year or so, had a fall yesterday (03/13/18) and felt weak in the legs so was admitted for further evaluation. Per patient she had couple episodes of urinary incontinence. She has been needing assistance for her ADLs. 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 MRI Thoracic and Lumbar spine w/w/o contrast done by hospitalist on admission reported to show T2 hyperintensity with mild expansion (edema) in the lower thoracic spinal cord with patchy enhancement, extending into the conus medullaris, small flow voids adjacent to the distal thoracic spinal cord raise suspicion for spinal dural AV fistulas, postinfectious, inflammatory myelitis/demyelination are possible but less likely. Impression Abnormal distal thoracic spinal cord hyperintense enhancing lesion extending to conus medullaris with mildly prominent adjacent blood vessels R/O spinal dural AV fistula vs R/O infectious/inflammatory/demyelinating/neoplastic etiology Plan -Patient being transferred to tertiary center for further neurosurgery evaluation to evaluate and manage spinal AV fistula -May need further evaluation in form of MRI brain/MRI C spine and LP to look demyelination/inflammation/infectious and neoplastic etiology -Will defer further management to neurosurgery and neurology at the tertiary center she is being transferred -Further management with steroids to be evaluated based on further testing results -Fall precautions -GI/DVT prophylaxis -PT/OT -Further medical management per hospitalist team -Please call with questions if any -Thank you for allowing us to participate in patient's care and management Code Visit Inpatient E&M: 12031 Init Hosp L3
--- NOTE | 2018-03-14 15:27 | CHAPLAIN ---
Type of Pastoral Visit _x__ Initial Visit ___ Follow-up Visit ___ On-call Visit ___ General Patient Visit ___ Spiritual Assessment ___ Family Conference ___ Bereavement ___ Rapid Response ___ Code Blue ___ Other (describe below) Pastoral Care Referral From _x__ Patient ___ Family ___ Nurse ___ Physician ___ Scissors Sharpener ___ Sander And Polisher ___ Other (describe below) Sacrament/Intervention _x__ Active listening ___ Anointing ___ Uatsdin ___ Bereavement ___ Communion ___ Eveline exploration ___ ___ Life review _x__ Prayer ___ Reconciliation ___ Sacrament of Sick _x__ Supportive presence ___ Wedding ___ Other (describe below) Pastoral Comments
[2018-03-15 03:53] VITALS: BP 166/88; PULSE 79; RESP 17; TEMP 36.6; O2SAT 95
[2018-03-15 04:02] VITALS: BP 166/88; PULSE 79
[2018-03-15] MEDS: hydrALAZINE 20 MG/ML Vial 5 MG IV (04:02)
[2018-03-15] MEDS: 0.9% NaCl Peripheral Flush Adult/Peds IV (04:02)
--- NOTE | 2018-03-15 05:00 | NURSING ---
REPORT CALLED TO JACK AT [facility]
[2018-03-15] MEDS: Acetaminophen 325 MG Tablet 650 MG PO (05:44)
[2018-03-15 06:21] VITALS: BP 168/84; PULSE 88; RESP 18; TEMP 36.7; O2SAT 98
[2018-03-15 16:02] LABS: Aldolase 4.1 U/L (3.3-10.3)
== END 2018-03-15 08:06 | disposition short-term general hospital (02) ==
LOC: ED 16:16 → MS3 19:00
PROVIDERS: Admitting Provider Hospitalist; Emergency Provider Emergency Medicine; Family Provider Family Medicine; PCP Family Medicine; Referring Provider Hospitalist; Visit Provider Internal Medicine
DX: R53.1 Weakness (principal); N39.0 Urinary tract infection, site not specified; I10 Essential (primary) hypertension; D68.51 Activated protein C resistance; R20.0 Anesthesia of skin; R20.2 Paresthesia of skin; Z79.899 Other long term (current) drug therapy; Z91.81 History of falling; Z86.711 Personal history of pulmonary embolism; Z86.718 Personal history of other venous thrombosis and embolism; Z79.82 Long term (current) use of aspirin; Z87.891 Personal history of nicotine dependence
CPT/HCPCS: 36415; 72148; 72149; 72157; 72158; 80048; 80076; 81001; 82085; 82550; 83615; 84443; 85025; 85652; 86140; 87086; 87088; 96372; 96374; 97162; 97166; 99218; 99284; A9585; A4216; G0378

== ENCOUNTER 2018-04-25 16:44 | Emergency (ER) | payer MEDICARE, SELFPAY ==
[2018-04-25 16:44] VITALS: BMI 32.9
[2018-04-25 16:45] VITALS: BP 135/80; PULSE 91; RESP 16; TEMP 36.6; O2SAT 96; BMI 35.2
[2018-04-25 18:23] LABS: Absolute Lymphocyte Count 0.83 X10^3/ul (0.83-4.51); Absolute Neutrophil Count 4.7 X10^3/uL (2.0-7.7); Basophil# 0.02 X10^3/uL; Basophil% 0.3 % (0-1); Eosinophil# 0.09 X10^3/uL; Eosinophils% 1.4 % (0-5); Hematocrit 37.9 % (37-47); Hemoglobin 12.2 g/dl (12.0-15.0); Lymphocyte # 0.83 X10^3/ul (4.0); Lymphocyte % 12.7 % (19-41); Mean Corp Hgb Conc 32.2 g/gl (32-36); Mean Corpuscular Volume 99.5 fL (81-99); Mean Platelet Vol. 8.8 fl (6.2-12.0); Monocyte# 0.81 X10^3/uL; Monocyte% 12.4 % (0-10); Neutrophil # 4.71 X10^3/uL (2.7-7.7); Neutrophil % 72.1 % (47-70); POSITIVE COUNT NO; POSITIVE DIFFERENTIAL NO; POSITIVE MORPHOLOGY NO; Platelet Count 229 K/mm3 (150-450); RBC Distribution Width CV 13.1 % (11.6-14.6); RBC Distribution Width SD 47.1 fl (35.1-43.9); Red Blood Count 3.81 M/mm3 (4.2-5.4); White Blood Count 6.5 K/mm3 (4.4-11.0)
[2018-04-25 18:32] LABS: International Normalized Ratio 1.1; Prothrombin Time (Protime)PT. 13.9 SECONDS (11.7-14.9)
[2018-04-25 18:33] LABS: Partial Thromboplast Time 31.2 Seconds (24.1-36.2)
[2018-04-25 18:38] LABS: ALB/GLOB Ratio 0.8 RATIO (0.9-2.4); AST(SGOT) 14 U/L (15-37); Alanine Aminotransfer ALT/SGPT 16 U/L (13-56); Alkaline Phosphatase 80 U/L (45-117); Anion Gap 9 (5-15); BUN 14 mg/dL (7-18); BUN/Creat Ratio 15.9 RATIO (10-20); Calcium,Total 8.8 mg/dL (8.5-10.1); Chloride 102 mmol/L (98-107); Creatinine, Serum 0.88 mg/dL (0.55-1.02); EST Glomerular Filtration Rate 66 mL/min (>60); Est Glom Filt Rate - Afr Amer 80 mL/min (>60); Estimated Creatinine Clearance 48.43 ml/min; Globulin 3.7 g/dL (2.2-4.2); Glucose 121 mg/dL (74-106); Potassium 3.6 mmol/L (3.5-5.1); Protein, Total 6.7 g/dL (6.4-8.2); Sodium Level 140 mmol/L (136-145)
--- NOTE | 2018-04-25 20:24 | ED.VISSUMM ---
- ER Visit Summary Date of Service: 04/25/18 Chief Complaint: DVT History of Present Illness: The patient is a 72 F with DVT. The patient was sent from the ultrasound lab. She has bilateral lower extremity DVTs worse on the left side. Patient had spine surgery about 6 weeks ago at the [facility] by Dr. Collins Regan. She has been doing well regarding the surgery. The leg swelling is new over the last several days. No chest pain or shortness of breath. Patient had a DVT in the past and was on Coumadin, but she developed an allergy and cannot take Coumadin. Physical Examination: Afebrile and vital signs unremarkable. Bilateral lower extremities show edema and tenderness. Neurovascular intact distally. Test Results: Labs and coags unremarkable. Emergency Department Course and Treatment: Patient was discussed with Dr. Regan. He advised that it is safe to start anticoagulation. Risk factors were discussed. Patient was started on Eliquis after discussion with Dr. Quezada. Patient advised to follow-up with her doctor. Treatment Plan: As above Disposition: Discharge Impression: 1. Bilateral leg DVT This note was generated with [employer] dictation software. It may contain incorrect words, spelling, and punctuation that were not noted in review of the chart prior to signing ED Disposition - Plan for ED Patient: Referrals: Jewel Vazquez MD [Primary Care Provider] -
--- NOTE | 2018-04-25 20:26 | ED.DEP ---
ED Disposition - Plan for ED Patient: Instructions: ED DVT Prescriptions: Apixaban [Eliquis] 5 mg PO BID #60 tab.ds.pk Referrals: Jewel Vazquez MD [Primary Care Provider] -
[2018-04-25] MEDS: APIXABAN 5 MG TABLET 10 MG PO (21:05)
[2018-04-25 21:07] VITALS: BP 134/78; PULSE 95; RESP 16; O2SAT 92
[2018-04-25 21:08] VITALS: BP 134/78; PULSE 99; RESP 16; O2SAT 91
== END 2018-04-25 21:10 | disposition home or self-care (01) ==
LOC: ED 18:14
PROVIDERS: Emergency Provider Emergency Medicine; Family Provider Family Medicine; PCP Family Medicine
DX: I82.403 Acute embolism and thrombosis of unspecified deep veins of lower extremity, bilateral (principal); I10 Essential (primary) hypertension; Z86.711 Personal history of pulmonary embolism; Z79.01 Long term (current) use of anticoagulants
CPT/HCPCS: 80053; 85025; 85610; 85730; 99284; A4216

== ENCOUNTER 2018-06-08 15:00 | Outpatient (RCR) | payer MEDICARE, SELFPAY ==
--- NOTE | 2018-05-13 16:27 | HP.PTEVAL ---
Patient's Visit Information ULL MCNEILL is a 72 year old F referred to Physical Therapy by KEANU SANTIAGO with a diagnosis of AVF (ARTERIOVENOUS FISTULA). Date of Evaluation: 05/13/18 Physical Therapist: Alivia Key, PT, Cert MDT - Visit Plan Frequency: 2-3x /Week Duration: 4-6 Weeks Plan: AQUATIC THERAPY FOR PAIN RELEIF, POSTURE CORRECTION/STRENGTHENING, INSTRUCTION IN APPROPRIATE BODY MECHANICS AND ACTIVITY MODIFICATIONS. DLS STARTING WITH A NEUTRAL SPINE PROGRESSING ROM TOLERATED. MARILEE LE ROM, STRETCHING AND STRENGTHENING. HEP INSTRUCTION. - Subjective Findings: Work/Leisure: RETIRED. Present symptoms: PATIENT REPORTS TINGLING IN LEGS AND FEET AND SOMETMES THEY HURT. THEY ALSO FEEL HOT SOMEITMES. ALSO HAS PAIN IN THIGHS. LEGS ARE STILL VERY WEAK. SOME LOW BACK PAIN AT SURGERY SITE. POOR STAMINA BUT IMPROVING. Present since: DEC 2017. Pain Scale: WORSE 6/10, LEAST 0/10. Currently: 0/10 SITTING IN CLINIC PRESENTLY. Commenced as a result of: NO APPARENT REASON. Symptoms at onset: ALL OF A SUDDEN WAS ABLE TO STAND UP STRAIGHT BUT ONSET OF SEVERE PROGRESSIVE MARILEE LE PAIN, NUMBNESS TINGLING AND WEAKNESS. Worse: BEING UP STANDING AND WALKING TOO MUCH, RIDING IN THE CAR TOO MUCH INCREASES LE NUMBNESS. Better: SITTING. Disturbed sleep: NO. Previous history/Previous treatment: LONG HISTORY OF CHRONIC LOW BACK PAIN. PHYSICAL THERAPY (AQUATIC THERAPY AND LAND PT). NO ROSENDO'S. THIS IS FIRST BACK SURGERY - MAR 17 2018. Coughing/sneezing/straining: NO. Gait: PATIENT REPORTS HER BALANCE IS STILL NOT GOOD BUT IMPROVING. STATES SHE USES THE ROLLATOR ALMOST ALL THE TIME EXCEPT SHORT DISTANCES IN THE HOUSE AND SHE IS REALLY AFRAID OF FALLING. Difficulty initiating urinatin: NO. INCONTINENT BEFORE SURGERY BUT A LOT BETTER NOW. Accidents: NO. Unexplained weight loss: NO. Imaging: FOLLOW UP ANGIOGRAM POST SURGERY. 3 MRI'S BEFORE SURGERY. NEXT MRI PENDING IN 3 MONTHS. PMH: FACTOR 5 LEIDEN. Recent major surgery: MARILEE THR'S AND MARILEE TKR'S. PLOF (Prior Level of Function): RELATIVELY UNLIMITED WITHOUT AD PRIOR TO THIS ONSET IN DEC 2017. OTHER: AVF SPINAL SURGERY T12 L1 MAR 17 2018 FOLLOWED BY COMPLICATION OF LE BLOOD CLOTS. PATIENT REPORTS THAT LAST WEEK ALL RESTRICTIONS WERE LIFTED. NO BENDING OR LIFTING RESTRICTIONS NOW. - Objective Sitting/Standing Posture: POOR. Lordosis: REDUCED. Lateral shift: LEFT. Relevant shift: NO. Active Correction of posture: NE. Other Observations: INDEP GAIT INTO PT WITH ROLATOR AND FAIR CADANCE. UNALBE TO SINGLE LEG STANCE ON EITHER LE WITHOUT UE ASSIST. UNSTEADY GAIT WITH WALKER DEPENDENCE. *HIGH FALL RISK* POOR CORE STRENGTH BUT WITHOUT INCREASED TRUNK FLEXION IN STANDING. Motor deficit: MARILEE LE GENERALIZED WEAKNESS. MARILEE HIPS 3+ TO 4-/5, KNEES 4-/5, ANKLES 4/5. VERY POOR CORE STRENGTH. Sensory deficit: MARILEE LE LIGHT TOUCH SENSATION APPEARS TO BE INTACT AND SYMMETRICAL DESPITE FEELING NUMB AND TINGLY. ROM deficit: MARILEE LE'S WFL. Dural Signs: NEGATIVE MARILEE LE'S. Lumbar mvmt loss: flex - MOD. ext - JULIO. R SG - JULIO. L SG - MOD TO JULIO. Core strength: VERY POOR. Palpation: LUMBAR SPINAL INCISION IS WELL HEALED WITH SMALL SCAB AT BOTTOM WITHOUT DRAINAGE OR SIGNS OF INFECTION. RECOMMEND POOL THERAPY AND PATIENT AGREEABLE. - Goals Goal 1:: DECREASE C/O LBP Goal Time Frame: 4-6 Weeks Goal 2:: IMPROVE STANDING, WALKING, BENDING, LIFTING, SITTING, SOCIAL LIFE, TRAVEL AND HOMEMAKING FUNCTION Goal Time Frame: 4-6 Weeks Goal 3:: INSTRUCT IN PROPHYLAXIS Goal Time Frame: 4-6 Weeks - Rehabilitation Potential Rehabilitation Potential: Fair - Anticipated Interventions Patient/Client Instruction: Educate patient on: Condition, Plan of Care, Risk Factors, Benefits of Fitness Program For the Purpose of:: To improve self management Therapeutic Exercise to Include: Strength training, Endurance training, Balance training, Body mechanics, Postural training, Flexibilty training, Gait and locomotor training, In an aquatic setting, Active ROM, Dynamic Lumbar Stabilization Comment: NO LUMBAR EXTENSION For the Purpose of:: To decrease pain, To increase ROM, To improve muscle performance and motor function, To increase tolerance to activity/condition/position, To improve performance and independence with ADL's, To improve ability of physical actions for home/community/work/leisure, To improve gait and locomotor functions Thank you for the opportunity to evaluate your patient. For Medicare and Medicare HMO plans, please review the plan of care and approve it. It will need to be FAXED BACK to us at [phone] for Medicare purposes. For Medicare only, by signing this I certify the plan of care. Please let me know if there are questions or concerns regarding this plan of care. Physician Signature: Date:
--- NOTE | 2018-06-08 17:13 | HP.PTDCSUM ---
HP - PT D/C Summary It has been my pleasure to treat LUL MCNEILL under orders from KEANU SANTIAGO, for the diagnosis of AVF (ARTERIOVENOUS FISTULA) for a total of 7 visit(s). Discharge Date: Please see the following information for a summary of their discharge status. - Subjective Subjective: PATIENT REPORTS SHE IS USING A CANE SOME NOW AND ALTHOUGH SHE PAYS FOR IT SOME AFTER SHE STILL THINKS IT IS GOOD. STATES SHE DID FINE AFTER LAST VISIT. PATIENT REPORTS INCREASED LOW BACK PAIN RIGHT NOW AND SHE RELATES IT TO BEING ON THE CANE ALMOST ALL DAY. FOLLOW UP DOPPLER PENDING SOON FOR BLOOD CLOTS. PATIENT REPORTS SHE WOULD LIKE TO DEAL WITH THE BLOOD CLOTS BEFORE SHE DOES ANY MORE PT. SHE REPORTS SHE KNOWS HOW TO DO HER CURRENT WATER EX'S AND WOULD LIKE TO CONTINUE ON HER OWN WITH THEM UNTIL FURHTER NOTICE. SHE STATES THAT THE WATER EX'S REALLY HELP IF SHE DOESN'T OVER-DO-IT. PATIENT REPORTS SHE IS MUCH BETTER NOW THAN WHEN STARTED PT. STATES SHE IS SLEEPING GREAT AND SHE FEELS REALLY GOOD EXCEPT FOR WHEN SHE HAS LOW BACK PAIN AND THE TINGLING AND WEAKNESS IN HER LEGS. THE TINGLING AND WEAKNESS ARE BOTH GETTING BETTER THOUGH. SHE STATES IT IS HARD TO NOT OVER-DO-IT BUT SHE PAYS FOR IT THE NEXT DAY WHEN SHE DOES. ABLE TO DO TRIPLE THE WALKING NOW THAN SHE COULD A MONTH AGO. ANOTHER MRI PENDING TOWARD THE END OF AUGUST ( 6 MONTHS POST OP). RIGHT LEG IS DOING BETTER THAN THE LEFT. STATES SHE STILL GETS SHOOTING PAINS THROUGH HER HIPS AND IT REALLY ISN'T GETTING BETTER AND HAPPENS MORE WHEN SHE DOES A LOT OF WALKING LIKE SHE DID TODAY. - Pain Lumbar Spine Pain Intensity (Out of 10): 3 - Overall Improvement % Improvement: 40 - Objective Objective/Function: PATIENT MAY BENEFIT FROM FURTHER SKILLED AQUATIC THERAPY FOR SLOW EX PROGRESSION AND FURTHER GAIT TRAINING AND LAND EX PROGRESSION BUT PATIENT REQUESTING TO STOP PT AT THIS TIME. THIS PT RECOMMENDS WALKER AT ALL TIMES VERSES CANE FOR SAFETY DUE TO STILL BEING A FALL RISK. SHE IS NOW ABLE TO SLS X APPROX 4-5 SEC WITHOUT UE ASSIST BUT IT IS DIFFICULT. Motor deficit: MARILEE LE GENERALIZED WEAKNESS. MARILEE HIPS 3+ TO 4-/5, KNEES 4/5, ANKLES 5/5. VERY POOR CORE STRENGTH. Sensory deficit: MARILEE LE LIGHT TOUCH SENSATION APPEARS TO BE INTACT AND SYMMETRICAL DESPITE FEELING NUMB AND TINGLY. PATIENT REPORTS LESS NUMBNESS WITH TESTING TODAY COMPARED TO INITIAL EVAL. ROM deficit: MARILEE LE'S WFL. Dural Signs: NEGATIVE MARILEE LE'S. Lumbar mvmt loss: flex - MIN (PATIENT REPORTS SHE CAN PICK THINGS UP OFF THE FLOOR - THIS PT ADVISED HER AGAINST IT FOR PROTECTION OF HER BACK AND SAFETY). Core strength: VERY POOR. OTHER: PATIENT REPORTS HER WILL BE GLAD THAT I RECOMMEND THE WALKER VS CANE. - Goals Goal 1:: DECREASE C/O LBP Goal Progress: Progressing Goal 2:: IMPROVE STANDING, WALKING, BENDING, LIFTING, SITTING, SOCIAL LIFE, TRAVEL AND HOMEMAKING FUNCTION Goal Progress: Progressing Goal 3:: INSTRUCT IN PROPHYLAXIS Goal Progress: Progressing - Plan Plan: D/C AT PATIENTS REQUEST. - D/C Information If there are questions or concerns regarding this patient's physical therapy, please feel free to call me at [phone]. Thank you for the referral of this patient. Sincerely, Alivia Key, PT, Cert MDT
== END 2018-06-08 19:00 | disposition home or self-care (01) ==
LOC: PT 15:00
PROVIDERS: Family Provider Family Medicine; PCP Family Medicine
DX: I77.0 Arteriovenous fistula, acquired (principal)
CPT/HCPCS: 97113; 97162; 97530

== ENCOUNTER → 2018-06-10 13:22 | Outpatient (CLI) | payer MEDICARE, SELFPAY ==
--- NOTE | 2018-06-10 13:24 | VDLE_ITS ---
Reason For Study: DVT/Edema RIGHT LEFT GSV is normal. GSV is normal. CFV is compressible, spontaneous, phasic, CFV is compressible, spontaneous, phasic, competent and demonstrates normal competent, and demonstrates normal augmentation. augmentation. FV is compressible, spontaneous, phasic, FV prox is compressible, spontaneous, phasic, competent and demonstrates normal competent and demonstrates normal augmentation. augmentation. POP V is compressible, spontaneous, phasic, FV mid is partially compressible with competent and demonstrates normal intraluminal echoes and diminished blood augmentation. flow. T/P Trunk is compressible. FV distal acute deep vein thrombosis is noted RT PerV is compressible. vein is noncompressible with absent blood Acute deep vein thrombosis is noted in the flow. right posterior tibial vein. POP V is compressible, spontaneous, phasic, Procedure competent and demonstrates normal Exam performed in department. augmentation. A preliminary report was called and/or faxed T/P Trunk is compressible. to [facility]. Acute deep vein thrombosis is noted in the left peroneal vein. Acute deep vein thrombosis is noted in the left posterior tibial vein. Interpretation Summary Acute deep vein thrombosis is noted in the right posterior tibial vein. The remainder of the right lower extremity deep venous system is patent and compressible. Acute deep vein thrombosis is noted in the distal left femoral vein. Acute deep vein thrombosis is noted in the left peroneal vein. Acute deep vein thrombosis is noted in the left posterior tibial vein. Chronic venous changes are noted in the left mid-femoral vein, which is partially compressible and demonstrates diminished flow and intraluminal echogenicity. The remainder of the left lower extremity deep venous system is patent and compressible. Valvular competence appears intact within the proximal deep venous systems bilaterally. The greater saphenous veins appear bilaterally patent and compressible segmentally. Ordering Physician: Jewel Vazquez Referring Physician: Jewel Vazquez Performed By: Susana Garcia RVT
== END ==
PROVIDERS: Family Provider Family Medicine; PCP Family Medicine; Referring Provider Family Medicine; Visit Provider Family Medicine
DX: I26.99 Other pulmonary embolism without acute cor pulmonale (principal); R60.9 Edema, unspecified; I82.499 Acute embolism and thrombosis of other specified deep vein of unspecified lower extremity
CPT/HCPCS: 93970

== ENCOUNTER → 2019-04-19 10:51 | Outpatient (CLI) | payer MEDICARE, SELFPAY ==
--- NOTE | 2019-04-19 11:00 | VDLE_ITS ---
Reason For Study: BLE PAIN RIGHT LEFT GSV is normal. GSV is normal. CFV is compressible, spontaneous, phasic, CFV is compressible, spontaneous, phasic, competent and demonstrates normal competent, and demonstrates normal augmentation. augmentation. FV is compressible, spontaneous, phasic, FV is compressible, spontaneous, phasic, competent and demonstrates normal competent and demonstrates normal augmentation. augmentation. POP V is compressible, spontaneous, phasic, POP V is compressible, spontaneous, phasic, competent and demonstrates normal competent and demonstrates normal augmentation. augmentation. T/P Trunk is compressible. T/P Trunk is compressible. PTV is compressible. PTV is compressible. RT PerV is compressible. LT PerV is compressible. Procedure Exam performed in department. The exam was diagnostic. A preliminary report was called and/or faxed to Bruno Rand [employer] @ [phone]. Interpretation Summary Deep veins of the lower extremities are bilaterally patent and compressible segmentally. There is no evidence of deep vein thrombosis on either side. Valvular competence appears intact within the proximal deep venous systems bilaterally. The great saphenous veins appear bilaterally patent and compressible segmentally. Ordering Physician: BRUNO RAND Referring Physician: Jewel Vazquez Performed By: Eboni Naranjo, ERNESTO, RVT
== END ==
PROVIDERS: PCP Family Medicine
DX: M79.605 Pain in left leg (principal)
CPT/HCPCS: 93970

== ENCOUNTER 2020-07-05 14:17 | Emergency (ER) | payer MEDICARE, SELFPAY ==
[2020-07-05 14:18] VITALS: BP 168/96; PULSE 97; RESP 15; TEMP 36.6; O2SAT 96; BMI 32.1
--- NOTE | 2020-07-05 14:39 | MRI_ITS ---
STUDY: MRI LUMBAR SPINE WITH AND WITHOUT CONTRAST REASON FOR EXAM: Female, 75 years old. back pain, weakness and paresthesias -- H/O spinal dural AV fistula TECHNIQUE: Standardized fat and water weighted pulse sequences were obtained in the sagittal and axial planes. IV 18cc dotarem was administered for the contrast portion of the examination. COMPARISON: MRI of the lumbar spine dated March 14, 2018 FINDINGS: No compression deformity or fracture is seen. No evidence of discitis or vertebral osteomyelitis. Moderate disc space narrowing is present at L1-L2 down to L4-L5, with diffuse disc spur complexes. Anterolisthesis of L4 and L5 of 7 mm is present. Mild central canal stenosis is present at L1-L2 and L2-L3. Mild to moderate central canal stenosis is present at L3-L4 worsened by moderate facet joint and of flava hypertrophy. Severe disc space narrowing at L5-S1 and partial osseous fusion across the intervertebral disc space. The central canal is normal at this level. Mild foraminal stenosis is present at multiple levels. No focal or suspicious enhancement of the soft tissue or bony structures. Multilevel facet joint and ligamenta flava mild to moderate hypertrophy. No demonstrated vascular flow voids or abnormal tangle of vessels that would indicate an arteriovenous fistula by MRI criteria. No visualized masses of the spinal cord. Normal lumbar lordosis. There is no substantial scoliosis. Normal conus medullaris that terminates at the T12-L1 level. Normal visualized sacral ala. There is mild paraspinal muscular atrophy. MRI/Spine Lumbar W/WO Contrast IMPRESSION: 1. Multilevel degenerative changes, as described above. 2. No demonstrated vascular flow voids or abnormal tangle of vessels that would indicate an arteriovenous fistula by MRI criteria. No visualized masses of the spinal cord. Direct catheter angiography is the gold standard for diagnosing spinal dural AV fistula. Electronically Signed: Sergo Felipe MD at 17:39 EDT , Service support ,
--- NOTE | 2020-07-05 14:39 | VDLE_ITS ---
Reason For Study: Swelling RIGHT LEFT GSV is normal. GSV is normal. CFV is compressible, spontaneous, phasic, CFV is compressible, spontaneous, phasic, competent and demonstrates normal competent, and demonstrates normal augmentation. augmentation. FV is compressible, spontaneous, phasic, FV is compressible, spontaneous, phasic, competent and demonstrates normal competent and demonstrates normal augmentation. augmentation. POP V is compressible, spontaneous, phasic, POP V is compressible, spontaneous, phasic, competent and demonstrates normal competent and demonstrates normal augmentation. augmentation. T/P Trunk is compressible. T/P Trunk is compressible. PTV is compressible. PTV is compressible. RT PerV is compressible. LT PerV is compressible. Procedure This is a venous duplex using B-mode, color flow and spectral Doppler. Exam performed in department. A preliminary report was called and/or faxed to [facility]. VL/Venous Duplex US - Eliceo Extrem Interpretation Summary Deep veins of the lower extremities are bilaterally patent and compressible seg mentally. There is no evidence of deep vein thrombosis on either side. Valvular competence appears in tact within the proximal deep venous systems bilaterally. The great saphenous veins appear bila terally patent and compressible segmentally. Ordering Physician: Marixa Angel Referring Physician: Jewel Vazquez Performed By: Susana Garcia RVT
[2020-07-05 14:58] LABS: Absolute Lymphocyte Count 1.46 X10^3/uL (0.83-4.51); Absolute Neutrophil Count 3.5 X10^3/uL (2.0-7.7); Basophil# 0.02 X10^3/uL; Basophil% 0.3 % (0-1); Eosinophil# 0.21 X10^3/uL; Eosinophils% 3.6 % (0-5); Hematocrit 43.5 % (37-47); Hemoglobin 14.3 g/dL (12.0-15.0); Lymphocyte # 1.46 X10^3/ul (0.83-4.51); Lymphocyte % 25.3 % (19-41); Mean Corp Hgb Conc 32.9 g/dL (32-36); Mean Corpuscular Hgb 31.8 pg (27.0-32.0); Mean Corpuscular Volume 96.7 fL (81-99); Mean Platelet Vol. 10.1 fl (6.2-12.0); Monocyte# 0.62 X10^3/uL; Monocyte% 10.7 % (0-10); NRBC Flagged by Analyzer 0 % (0-5); Neutrophil # 3.46 X10^3/uL (2.7-7.7); Neutrophil % 59.9 % (47-70); Platelet Count 172 K/mm3 (150-450); RBC Distribution Width CV 12.5 % (11.6-14.6); RBC Distribution Width SD 45.1 fl (35.1-43.9); White Blood Count 5.8 K/mm3 (4.4-11.0)
[2020-07-05 15:02] LABS: Anion Gap 5 (5-15); BUN 26 mg/dL (7-18); Calcium,Total 9.6 mg/dL (8.5-10.1); Chloride 105 mmol/L (98-107); Creatinine, Serum 1.04 mg/dL (0.55-1.02); EST Glomerular Filtration Rate 55 mL/min (>60); Est Glom Filt Rate - Afr Amer 66 mL/min (>60); Estimated Creatinine Clearance 44.05 ml/min; Glucose 125 mg/dL (74-106); Potassium 3.5 mmol/L (3.5-5.1); Sodium Level 141 mmol/L (136-145)
[2020-07-05 15:23] LABS: BNP,B-Type NATRIURETIC PEPTIDE 56.8 pg/mL (0-100)
[2020-07-05 16:55] VITALS: BP 181/71; PULSE 78; RESP 16; O2SAT 97
--- NOTE | 2020-07-05 17:33 | EDS_ITS ---
HPI History of Present Illness Chief Complaint: Lower Extremity Injury Detail of Chief Complaint: Bilateral leg pain. Informant: patient and spouse/S.O. Onset/Context/Timing Onset: Days (7 to 10 days) Context: Gradual Onset Current Severity: Mild Maximum Severity: Moderate Narrative Narrative: Patient presents with pain and swelling to the bilateral lower extremities, worse at the knees. She states her right leg seems to be affected more than left. No recent fall. Patient has a history of a spinal dural AV fistula. She had surgery for this 2 years ago. Since that time she has had paresthesias below her knees. Over the last week she now has paresthesias and increased pain rising above her knees to the hips. She denies problems with bowel or bladder control. There is some question as to whether the patient has factor V Leiden. She has had DVTs and PEs. She is currently just on aspirin and no other anticoagulants. [facility] Medical History DVT (deep venous thrombosis) Hypertension Pulmonary embolism Home Medications acetaminophen [Tylenol Extra Strength] 1,000 mg PO Q6H PRN PRN 03/13/18 [History Last Taken 03/13/18] aspirin 325 mg PO DAILY 03/13/18 [History Last Taken 03/09/18] ergocalciferol (vitamin D2) [Vitamin D2] 50,000 unit PO MCCLELLAN 03/13/18 [History Last Taken 03/06/18] triamterene-hydrochlorothiazid 1 tab PO DAILY 03/13/18 [History Last Taken 03/13/18] apixaban 5 mg PO BID #60 tab.ds.pk 04/25/18 [Rx Last Taken Unknown] tramadol 50 mg PO BID PRN #14 tab 07/05/20 [Rx Last Taken Unknown] Allergy/AdvReac Type Severity Reaction Status Date / Time Cephalosporins Allergy Rash Verified 07/05/20 14:21 codeine Allergy Rash Verified 07/05/20 14:21 latex Allergy Rash Verified 07/05/20 14:21 scopolamine Allergy Other Verified 07/05/20 14:21 warfarin [From Coumadin] Allergy Other Verified 07/05/20 14:21 Social History Smoking Status: Former smoker ROS ROS ED Constitutional Constitutional ED: Denies chills or fever(s) Eyes Eyes: Denies change in vision ENT ENT ED: Denies sore throat Cardiovascular Cardiovascular: Denies chest pain Respiratory/Chest Respiratory/Chest: Denies cough or dyspnea Gastrointestinal Gastrointestinal: Denies abdominal pain, diarrhea, nausea or vomiting Genitourinary Genitourinary ED: Denies dysuria Musculoskeletal Musculoskeletal: Reports arthralgias and back pain Integumentary Denies rash Neurologic Neurologic: Reports paresthesias; Denies headache(s) or weakness Psychiatric Psychiatric: Denies anxiety or depression Endocrine Endocrinology: Denies polydipsia or polyuria Allergic/Immunologic Allergic/Immunologic ED: Denies urticaria EXAM Physical Exam Const Vital Signs: 07/05/20 14:18 07/05/20 16:55 Temperature 97.8 F Temperature Source Temporal Pulse Rate 97 78 Respiratory Rate 15 16 Blood Pressure 168/96 H 181/71 H Blood Pressure Mean 120 107 Pulse Ox 96 97 Oxygen Delivery Method Room Air Room Air Positive well nourished and well developed General Appearance ED: well developed HEENT Reports normocephalic and head/scalp atraumatic Eyes PERRL and EOMs intact bilaterally Neck supple Chest Wall inspection of chest normal and palpation of chest normal Resp normal respiratory effort and clear to auscultation bilaterally Cardio regular rate and regular rhythm GI normal to inspection, nondistended, normoactive bowel sounds Palpation: soft Back/Spine no CVA tenderness Back/Spine Narrative: Tenderness to palpation of the lumbar spine. No overlying skin changes. Extremity normal to inspection Extremity Narrative: 1-2+ edema bilaterally. Strong distal pulses. Good range of motion. Neuro oriented x3 Sensorium / Orientation: alert Motor Exam: strength 5/5 throughout Psych mental status grossly normal Skin no rashes or lesions noted MDM MDM MDM Narrative Medical decision making narrative: Lab work is obtained. Venous ultrasound of the bilateral legs is obtained. MRI of the lumbar spine with contrast is obtained. Lab Data Attestation: I reviewed the patient's lab results. Labs: Laboratory Results - last 24 hr 07/05/20 07/05/20 07/05/20 14:20 14:20 14:20 WBC 5.8 RBC 4.50 Hgb 14.3 Hct 43.5 MCV 96.7 MCH 31.8 MCHC 32.9 RDW Std Deviation 45.1 H RDW Coeff of Ankur 12.5 Plt Count 172 MPV 10.1 Immature Gran % (Auto) 0.200 Neut % (Auto) 59.9 Lymph % (Auto) 25.3 [place] % (Auto) 10.7 H Eos % (Auto) 3.6 Baso % (Auto) 0.3 Absolute Neuts (auto) 3.5 Absolute Lymphs (auto) 1.46 Nucleated RBC % 0 Sodium 141 Potassium 3.5 Chloride 105 Carbon Dioxide 31.0 Anion Gap 5 BUN 26 H Creatinine 1.04 H Estim Creat Clear Calc 44.05 Est GFR (MDRD) Af Amer 66 Est GFR (MDRD) Non-Af 55 L BUN/Creatinine Ratio 25.0 H Glucose 125 H Calcium 9.6 B-Natriuretic Peptide 56.8 Radiography Diagnostic Testing: Radiology Impression Lumbar Spine MRI 07/05/20 14:39 IMPRESSION: 1. Multilevel degenerative changes, as described above. 2. No demonstrated vascular flow voids or abnormal tangle of vessels that would indicate an arteriovenous fistula by MRI criteria. No visualized masses of the spinal cord. Direct catheter angiography is the gold standard for diagnosing spinal dural AV fistula. Electronically Signed: Sergo Felipe MD at 17:39 EDT , Service support , Treatment and Re-Evaluation Comments:: Venous ultrasound of the bilateral lower extremities reveal no evidence of DVT. Blood work is unremarkable. MRI of the spine reveals chronic changes but no acute findings to explain her change in her symptoms. Test results are discussed with the patient and at bedside. She will be treated with a course of tramadol to help control pain. She will follow with her spinal surgeon. She is instructed on elevating her feet and using her compression hose when she is up and on her feet during the day. Discharge Plan Triage Chief Complaint: Lower Extremity Injury ED Provider: aMrixa Angel Dx/Rx/DC Orders Clinical Impression: Bilateral lower extremity pain Instructions: ED Peripheral Edema, Bilateral Prescriptions: New tramadol 50 mg tablet 50 mg PO BID PRN (Reason: pain) Qty: 14 RF: 0 No Action aspirin 325 MG tablet 325 mg PO DAILY RF: 0 triamterene-hydrochlorothiazid 37.5-25 capsule 1 tab PO DAILY RF: 0 acetaminophen [Tylenol Extra Strength] 500 MG tablet 1,000 mg PO Q6H PRN PRN (Reason: pain ) RF: 0 ergocalciferol (vitamin D2) [Vitamin D2] 50,000 UNIT capsule 50,000 unit PO MCCLELLAN RF: 0 apixaban 5 MG tablets,dose pack 5 mg PO BID Qty: 60 RF: 0 Primary Care Provider: Jewel Vazquez Referrals: Fermín Awad MD [STAFF PHYSICIAN] - As soon as possible Jewel Vazquez MD [Primary Care Provider] - Disposition Disposition: Home, self care
[2020-07-05] MEDS: traMADol 50 MG Tablet PO (18:12)
== END 2020-07-05 18:13 | disposition home or self-care (01) ==
PROVIDERS: Emergency Provider Emergency Medicine; PCP Family Medicine
DX: M79.605 Pain in left leg (principal); M79.604 Pain in right leg; I10 Essential (primary) hypertension; Z86.718 Personal history of other venous thrombosis and embolism; Z79.02 Long term (current) use of antithrombotics/antiplatelets; Z79.899 Other long term (current) drug therapy; Z87.891 Personal history of nicotine dependence
CPT/HCPCS: 72158; 80048; 83880; 85025; 93970; 99284; A9575; A4216

== ENCOUNTER → 2020-12-06 10:50 | Outpatient (CLI) | payer MEDICARE, SELFPAY ==
--- NOTE | 2020-12-06 10:51 | MRI_ITS ---
STUDY: MRI ABDOMEN WITH AND WITHOUT CONTRAST REASON FOR EXAM: Female, 75 years old. expanding liver mass TECHNIQUE: Standardized fat and water weighted pulse sequences were obtained in all 3 orthogonal planes post contrast administration. 19 ml IV Dotarem was administered for the contrast portion of the examination. COMPARISON: None. FINDINGS: The visualized lung bases are unremarkable. The visualized portions of the heart are within normal limits. There are multiple hepatic cysts all of which are T2 hyperintense and do not demonstrate contrast enhancement consistent with simple cysts. No significant septation or nodularity. The largest cyst is a 10.5 cm cyst in the subcapsular posterior segment of the right lobe of the liver. Normal gallbladder and extrahepatic biliary system. Normal spleen. Normal pancreas. Normal bilateral adrenal glands. Normal right kidney. Normal left kidney. Normal visualized stomach. Normal small intestine. Normal colon. There is non-visualization of the appendix. Normal abdominal aorta. Normal inferior vena cava. Normal retroperitoneum. Normal abdominal wall. Normal osseous structures. MRI/MRI Abd WITH and W/O Contrast IMPRESSION: Multiple hepatic cysts including a 10.5 cm cyst in the subcapsular posterior segment right lobe of the liver. Electronically Signed: Shashank Jackson MD at 17:54 EDT Tel , Service support ,
[2020-12-06 11:30] LABS: CREATININE FINGERSTICK 0.9 mg/dL (0.55-1.02); EGFR FINGERSTICK > 60.0000 mL/min (>60)
== END ==
PROVIDERS: PCP Internal Medicine; Referring Provider Internal Medicine Gastroenterology; Visit Provider Internal Medicine Gastroenterology
DX: K76.89 Other specified diseases of liver (principal)
CPT/HCPCS: 74183; A9575

== ENCOUNTER 2021-04-29 12:17 | Outpatient (CLI) | payer MEDICARE, SELFPAY ==
--- NOTE | 2021-04-29 12:19 | MRI_ITS ---
STUDY: MRI ABDOMEN WITH AND WITHOUT CONTRAST REASON FOR EXAM: Female, 75 years old. Monitor hepatoma TECHNIQUE: Standardized fat and water weighted pulse sequences were obtained in all 3 orthogonal planes post contrast administration. IV 19ml the was administered for the contrast portion of the examination. COMPARISON: None. FINDINGS: The visualized lung bases are unremarkable. The visualized portions of the heart are within normal limits. Scattered hepatic cysts, unchanged in size since prior. It is in 11.5 cm cyst in the right hepatic lobe. Normal gallbladder and extrahepatic biliary system. Normal spleen. Normal pancreas. Normal bilateral adrenal glands. Normal right kidney. Normal left kidney. Normal visualized stomach. Normal small intestine. Normal colon. Normal abdominal aorta. Normal inferior vena cava. Normal retroperitoneum. Normal abdominal wall. There are diffuse degenerative changes of the visualized lumbar spine. MRI/MRI Abd WITH and W/O Contrast IMPRESSION: Multiple hepatic cysts, unchanged in size since prior on 12/06/2020. Electronically Signed: Kwesi Richmond MD at 23:23 EDT ,
[2021-04-29 12:51] LABS: CREATININE FINGERSTICK < 0.6 mg/dL (0.55-1.02); EGFR FINGERSTICK > 60.0000 mL/min (>60)
== END 2021-04-29 23:59 | disposition home or self-care (01) ==
LOC: MRI 12:19
PROVIDERS: PCP Internal Medicine; Referring Provider Internal Medicine Gastroenterology; Visit Provider Internal Medicine Gastroenterology
DX: C22.0 Liver cell carcinoma (principal)
CPT/HCPCS: 74183; A9575; A4216

== ENCOUNTER 2021-05-22 13:00 | Outpatient (RCR) | payer MEDICARE, SELFPAY ==
--- NOTE | 2021-04-21 15:35 | HP.PTEVAL ---
Patient's Visit Information LUL MCNEILL is a 75 year old F referred to Physical Therapy by Alex Smith PA-C with a diagnosis of LUMBAR DISC HERNIATION AND L HIP CONTUSION. Date of Evaluation: 04/21/21 Physical Therapist: Alivia Key PT, Cert MDT - Visit Plan Frequency: 2-3x /Week Duration: 4-6 Weeks Plan: AQUATIC THERAPY FOR PAIN BACK/HIP PAIN RELIEF, POSTURE CORRECTION/STRENGTHENING, INSTRUCTION IN APPROPRIATE BODY MECHANICS AND ACTIVITY MODIFICATIONS. DLS STARTING WITH A NEUTRAL SPINE PROGRESSING ROM TOLERATED. MARILEE LE ROM, STRETCHING AND STRENGTHENING. HEP INSTRUCTION - Subjective Work/Leisure: RETIRED. Present symptoms: LEFT HIP PAIN ANTERIOR AROUND OUTSIDE AND LEFT LOW BACK. FEELS OFF BALANCE. NUMBNESS AND TINGLING FROM KNEES DOWN MARILEE (NUMBNESS AND TINGLING IS CHRONIC SINCE BACK SURGERY 03/17/2018). Present since: CHRONIC. Pain Scale: WORST 8/10, LEAST 3/10. Currently: 3/10. Commenced as a result of: PATIENT REPORTS RECENT FALL ABOUT 2 WKS AGO. SHE REPORTS WHEN SHE SAT DOWN IN A CHAIR IT SLID OUT FROM UNDERNEATH HER AND SHE LANDED ON BACK ON CONCRETE FLOOR. WAS HELPING SISTER IN LAW WITH LAUNDRY. PATIENT REPORTS SHE REALLY DOESN'T HAVE ANY NEW SX'S SINCE THE FALL. Worse: ABOUT 8PM PAIN INCREASES FOR NO APPARENT REASON. STATES SHE CAN BARELY TAKE ANOTHER STEP AT THAT POINT AND LYING DOWN FLAT HELPS. STEPS. LIVES IN TWO STORY HOME BUT LIVES ON ONE FLOOR BUT DOES GO DOWNSTAIRS ABOUT ONCE A DAY OR EVERY OTHER DAY. Better: LYING FLAT, ICE, TYLONOL, OXICODONE. Disturbed sleep: YES. Previous history/Previous treatment: LUMBAR SX 03/17/[address] FISCHER AT [facility], L THR > 3 YEARS AGO. NO ROSENDO'S. Treatment this episode: L HIP INJECTION BY [facility] FEB 2021. PATIENT REPROTS THE INJECTION REALLY HELPED. AQUATIC AND LAND PT. Coughing/sneezing/straining: NEGATIVE. Gait: 3 WHEELED ROLATOR EXCEPT SHORT PERIORDS WITH CANE AND TO FURNITURE WALK. Difficulty initiating urination: NO. PATIENT DENIES BOWEL AND BLADDER INCONTINENCE. Accidents: NO. Unexplained weight loss: NO. Imaging: RECENT L HIP X-RAY AT [facility] - PATIENT REPORTS THE X-RAYS SHOW THAT HER HIPS ARE EVEN AND IT DIDN'T SHOW ANY CRACKING OR ANYTHING LIKE THAT. NO LOW BACK X-RAYS RECENTLY THAT PATIENT IS AWARE OF AND MRI PENDING 04/29/21. PMH/Recent major surgery: PATIENT REPORTS SHE NO LONGER HAS FACTOR 5. MARILEE THR'S AND MARILEE TKR'S. AVF (fistula) SPINAL SURGERY T12 L1 MAR 17 2018 FOLLOWED BY COMPLICATION OF LE BLOOD CLOTS. - Objective Sitting/Standing Posture: FAIR. Active Correction of posture: WORSE. Other Observations: THIS PATIENT AMBULATES INDEP'LY INTO PT WITH A 3 WHEELED WALKER WITHOUT LOB. WITHOUT THE WALKER HER MARILEE STRIDE IS MUCH SHORTER, HER CADANCE IS SLOWER AND SHE IS UNSTEADY/NOT SAFE. Motor deficit: MARILEE LE STRENGTH IS GROSSLY 4-/5 IN HER HIPS AND KNEES AND 5/5 IN HER ANKLES. Sensory deficit: MARILEE LE LIGHT TOUCH SENSATION IS GROSSLY INTACT AND SYMMETRICAL. ROM deficit: MILD MARILEE HIP ROTATION AND KNEE FLEXION TIGHTNESS. MILD MARILEE GASTROC -SOLEUS TIGHTNESS. Reflexes: NT. Dural Signs: NEGATIVE MARILEE LE'S. Lumbar mvmt loss: flex - NIL. ext - JULIO. R SG - MOD. L SG - JULIO. PATIENT C/O FEELING OFF BALANCE WITH LUMBAR EXT ROM TESTING AND INCREASED LEFT LBP WITH LEFT SG TESTING. Core strength: POOR. Palpation: LEFT LOW BACK, POSTERIOR/LATERAL/ANTERIOR HIP TENDERNESS. - Balance/Special Test Scores Oswestry Low Back Score: 21 - Goals Goal 1:: DECREASE C/O BACK AND L HIP PAIN. Goal Time Frame: 4-6 Weeks Goal 2:: IMPROVE LIFTING, WALKING, SITTING, STANDING, SLEEP, SOCIAL LIFE, TRAVEL AND HOMEMAKING FUNCTION Goal Time Frame: 4-6 Weeks Goal 3:: INSTRUCT IN PROPHYLAXIS Goal Time Frame: 4-6 Weeks - Anticipated Interventions Patient/Client Instruction: Educate patient on: Condition, Plan of Care, Risk Factors For the Purpose of:: To improve self management Therapeutic Exercise to Include: Strength training, Body mechanics, Postural training, Flexibilty training, Gait and locomotor training, Neuromotor development, In an aquatic setting, Dynamic Lumbar Stabilization For the Purpose of:: To decrease pain, To increase ROM, To improve muscle performance and motor function, To increase tolerance to activity/condition/position, To improve ability of physical actions for home/community/work/leisure, To improve gait and locomotor functions Thank you for the opportunity to evaluate your patient. For Medicare and Medicare HMO plans, please review the plan of care and approve it. It will need to be FAXED BACK to us at [phone] for Medicare purposes. For Medicare only, by signing this I certify the plan of care. Please let me know if there are questions or concerns regarding this plan of care. Physician Signature: Date:
--- NOTE | 2021-05-22 13:32 | HP.PTDCSUM_ITS ---
It has been my pleasure to treat LUL MCNEILL referred by Alex Smith PA-C, with the diagnosis of LUMBAR DISC HERNIATION AND L HIP CONTUSION for a total of 9 visit(s). Discharge Date: Please see the following information for a summary of their discharge status. Subjective: I'VE BEEN DOING REALLY WELL. PATIENT REPORTS SHE REALLY ISN'T HAVING MUCH PAIN AT ALL BUT SHE TILL HAS NUMBNESS FROM DISTAL THIGH DOWN TO FEET MARILEE. SIGNED UP FOR MAC ENGEL AND PLANS TO CONTINUE [facility] WATER EX. LLE Pain Intensity (Out of 10): 3 RLE Pain Intensity (Out of 10): 3 % Improvement: 90 Objective/Function: PATIENT WAS SEEN TODAY FOR RE-ASSESSMENT OF PROGRESS TOWARD THE SET PT GOALS AND THE NEED FOR FURTHER PHYSICAL THERAPY VS READINESS FOR DISCHARGE. SHE IS FEELING MUCH BETTER AND INDEP WITH A POOL EX PROGRAM. SHE REPORTS THIS IS THE BEST SHE HAS FELT SINCE SURGERY. SHE IS APPROPRIATE FOR DISCHARGE TO [facility] WATER EX PROGRAM AT THIS TIME AND SHE IS AGREEABLE. PATIENT IS HAPPY TO REPORT SHE CAN RIDE IN THE CAR FOR ABOUT 2 HOURS NOW AND THAT THAT IS REALLY GOOD FOR HER. SHE IS UNSAFE WITHOUT HER WALKER AND THIS PT RECOMMENDS WALKER AT ALL TIMES OUTSIDE HOME AND AT LEAST CANE/FURNITURE IN HOME. UPON EXAM TODAY: THIS PATIENT AMBULATES INDEP'LY INTO PT WITH A 3 WHEELED WALKER WITHOUT LOB. WITHOUT THE WALKER HER MARILEE STRIDE IS MUCH SHORTER, HER CADANCE IS SLOWER AND SHE IS UNSTEADY/NOT SAFE. Motor deficit: MARILEE LE STRENGTH IS GROSSLY 4-/5 IN HER HIPS AND KNEES AND 5/5 IN HER ANKLES. Sensory deficit: MARILEE LE LIGHT TOUCH SENSATION IS GROSSLY INTACT AND SYMMETRICAL. ROM deficit: MILD MARILEE HIP ROTATION AND KNEE FLEXION TIGHTNESS. MILD MARILEE GASTROC -SOLEUS TIGHTNESS. Reflexes: NT. Dural Signs: NEGATIVE MARILEE LE'S. Lumbar mvmt loss: flex - NIL. ext - JULIO. R SG - MOD. L SG - JULIO. PATIENT IS UNSTEADY WITH LUMBAR ROM TESTING BUT DENIES PAIN WITH TESTING. Core strength: POOR. Palpation: LEFT LOW BACK TENDERNESS Goal 1:: DECREASE C/O BACK AND L HIP PAIN. Goal Progress: Goal Met Goal 2:: IMPROVE LIFTING, WALKING, SITTING, STANDING, SLEEP, SOCIAL LIFE, TRAVEL AND HOMEMAKING FUNCTION Goal Progress: Goal Met Goal 3:: INSTRUCT IN PROPHYLAXIS Goal Progress: Goal Met Plan: D/C TO [facility] PROGRAM. PATIENT AGREEABLE. If there are questions or concerns regarding this patient's physical therapy, please feel free to call me at [phone]. Thank you for the referral of this patient. Sincerely, Alivia Key, PT, Cert MDT Balance/Gait/Functional tests - Balance/Special Test Scores Oswestry Low Back Score: 11
== END 2021-05-22 13:49 | disposition home or self-care (01) ==
LOC: PT 13:00
PROVIDERS: PCP Internal Medicine; Referring Provider Physician Assistant; Visit Provider Physician Assistant
DX: S70.02XD Contusion of left hip, subsequent encounter (principal); M51.36 Other intervertebral disc degeneration, lumbar region; Z96.642 Presence of left artificial hip joint
CPT/HCPCS: 97113; 97162; 97164

== ENCOUNTER 2021-12-26 12:30 | Outpatient (RCR) | payer MEDICARE, SELFPAY ==
--- NOTE | 2021-11-25 10:53 | HP.PTEVAL ---
Patient's Visit Information LUL MCNEILL is a 76 year old F referred to Physical Therapy by Dr. Sam Bello MD with a diagnosis of GREATER TROCH BURSITIS L HIP AND FX L FOOT METATARSAL. Date of Evaluation: 11/25/21 Physical Therapist: Alivia Key, PT, Cert MDT - Visit Plan Frequency: 2-3x /Week Duration: 4-6 Weeks Plan: RECENT L FOOT FX PATIENT IS CONSIDERING HAVING ANOTHER CORTISONE SHOT IN L HIP. AQUATIC THERPAY FOR HIP PAIN RELIEF, POSTURE CORRECTION/STRENGTHENING, DLS WITH A NEUTRAL SPINE ONLY. MARILEE LE ROM, STRETCHING AND STRENGTHENING. HEP INSTRUCTION. - Subjective PATIENT REPORTS SHE FELL ABOUT 5 WEEKS AGO AT A FRIENDS HOUSE AND SHE BROKE HER LEFT FOOT. STATES SHE WAS FURNITURE WALKING AND WENT DOWN. Present symptoms: L HIP PAIN. NO LONGER HAVING L FOOT PAIN. Present since: CHRONIC HIP PAIN. Pain Scale: WORST 9/10, LEAST 2/10. Currently: 2/10. Commenced as a result of: HIP PAIN STARTED FOR NO APPARENT REASON. Worse: TOO MUCH STANDING AND WALKING. STANDING IS WORSE THAN WALKING. COOKING. SITTING AT TIMES. Better: TAPING IT. HEAT. Disturbed sleep: YES. Previous history/Previous treatment: LUMBAR SURGERY 2019. NUMB FROM THE THIGHS TO THE FEET. MARILEE LE NUMBESS, TINGLING AND BURNING. MARILEE THR'S AND MARILEE TKR'S. AQUATIC THERAPY IN THE PAST. Treatment this episode: L HIP CORTISONE SHOT AT [facility] FEB 2021. Coughing/sneezing/straining: NEGATIVE. Gait: INCREASED DIFFICULTY WALKING THE DAY PROGRESSES. Bowel or Bladder Dysfunction: NO. Unexplained weight loss: NO. Imaging: NO RECENT HIP IMAGING. RECENT L FOOT X-RAY LAST SURGERY AND WAS TOLD IT IS HEALING WELL. PMH/Recent major surgery: HTN - Objective THIS PATIENT AMBULATES INDEP'LY INTO PT TODAY WITH A 3 WHEELED WALKER FULLY WEIGHT BEARING ON HER LLE WITH IN-TOEING AND Trendelenburg Type Gait. SHE IS DEPENDENT ON HER WALKER TO ADVANCE HER LE'S. Sensory deficit: MARILEE LE LIGHT TOUCH IS INTACT AND SYMMETRICAL BUT FEELS ALTERED TO PATIENT COMPARED TO UE'S. ROM deficit: TIGHT MARILEE HIPS ALL PLANES. TIGHT MARILEE HS AND GASTROC SOLEUS COMPLEX'S. Motor deficit: MARILEE LE'S GROSSLY 4-/5. Core strength: POOR. Palpation: THERE IS NO TENDERNESS IN THE LEFT FOOT BUT PATIENT HAS MARILEE HIP GREATER TROCH REGION AND IT BAND REGION TENDERNESS LEFT GREATER THAN RIGHT. - Balance/Special Test Scores Lower Extremity Functional Score: 31 - Goals Goal 1:: DECREASE C/O L HIP PAIN TO EASE ADL'S Goal Time Frame: 4-6 Weeks Goal 2:: IMPROVE STANDING, WALKING, SITTING AND ADL FUNCTION Goal Time Frame: 4-6 Weeks Goal 3:: PATIENT WILL BE INDEP WITH A HEP FOR CONTINUED IMPROVEMENT ONCE FORMAL PHYSICAL THERPAY CONCLUDES. Goal Time Frame: 4-6 Weeks - Anticipated Interventions Patient/Client Instruction: Educate patient on: Condition, Plan of Care, Risk Factors For the Purpose of:: To improve self management Therapeutic Exercise to Include: Strength training, Body mechanics, Postural training, Flexibilty training, Gait and locomotor training, Neuromotor development, In an aquatic setting, Dynamic Lumbar Stabilization For the Purpose of:: To decrease pain, To improve muscle performance and motor function, To increase tolerance to activity/condition/position, To improve ability of physical actions for home/community/work/leisure, To improve gait and locomotor functions Thank you for the opportunity to evaluate your patient. For Medicare and Medicare HMO plans, please review the plan of care and approve it. It will need to be FAXED BACK to us at [phone] for Medicare purposes. For Medicare only, by signing this I certify the plan of care. Please let me know if there are questions or concerns regarding this plan of care. Physician Signature: Date:
--- NOTE | 2021-12-26 12:58 | HP.PTREVAL ---
Dr. Sam Bello MD, It has been my pleasure to treat LUL MCNEILL over the last 8 visits for GREATER TROCH BURSITIS L HIP AND FX L FOOT METATARSAL. Please see the progress note below for an update on the physical therapy plan of care! Subjective: PATIENT REPORTS HER FOOT AND HER HIP ARE A LOT BETTER. HIP BURSITIS FLARES UP OCCASSIONALLY. PATIENT PLANS TO KEEP UP WITH HER AQUATIC THERAPY PROGRAM ABOUT 2 DAYS A WEEK. QUESTIONING IF IT WOULD BE OK TO DO SOME LAND/MACHINE EX'S WITH HER MEMBERSHIP HOWEVER PATIENT REPORTS SHE IS SUPPOSED TO FOLLOW UP WITH DR. FALK FOR HER SPINE AFTER HE RECEIVES ALL OF HER MEDICAL RECORDS FROM THE [facility]. Objective/Function: PATIENT WAS SEEN TODAY FOR RE-ASSESSMENT OF PROGRESS TOWARD THE SET PT GOALS AND THE NEED FOR FURTHER PHYSICAL THERAPY VS READINESS FOR DISCHARGE. PATIENT APPEARS TO BE A GOOD CANDIDATE TO ADD LAND EX TO HER POC BUT WILL FOLLOW UP WITH DR. FALK FIRST AND DISCUSS WITH HIM. UPON EXAM TODAY THERE ARE NO SIGNIFICANT OBJECTIVE FUNCTIONAL CHANGES BUT SHE IS REPORTING MUCH LESS HIP PAIN AND IS INDEP WITH A POOL PROGRAM. Plan Plan: HOLD CHART PENDING FOLLOW UP WITH DR. FALK. CONSIDER ADDING LAND EXERCISE IN GYM TO SUPPLEMENT CURRENT AQUATIC THERAPY PROGRAM IF ORDERS REC'D. Balance/Gait/Functional tests - Balance/Special Test Scores Lower Extremity Functional Score: 36 Goals Goal 1:: DECREASE C/O L HIP PAIN TO EASE ADL'S Goal Time Frame: 4-6 Weeks Goal Progress: Goal Met Goal 2:: IMPROVE STANDING, WALKING, SITTING AND ADL FUNCTION Goal Time Frame: 4-6 Weeks Goal Progress: Not Progressing Goal 3:: PATIENT WILL BE INDEP WITH A HEP FOR CONTINUED IMPROVEMENT ONCE FORMAL PHYSICAL THERPAY CONCLUDES. Goal Time Frame: 4-6 Weeks Goal Progress: Progressing Anticipated Interventions Patient/Client Instruction: Educate patient on: Condition, Plan of Care, Risk Factors For the Purpose of:: To improve self management Therapeutic Exercise to Include: Strength training, Body mechanics, Postural training, Flexibilty training, Gait and locomotor training, Neuromotor development, In an aquatic setting, Dynamic Lumbar Stabilization For the Purpose of:: To decrease pain, To improve muscle performance and motor function, To increase tolerance to activity/condition/position, To improve ability of physical actions for home/community/work/leisure, To improve gait and locomotor functions Please do not hesitate to contact me at [phone] by phone or if you have questions or concerns regarding this new plan of care! Sincerely, Alivia Key, PT, Cert MDT
--- NOTE | 2022-05-13 12:57 | HP.PTDCSUM ---
It has been my pleasure to treat LUL MCNEILL referred by Dr. Sam Bello MD, with the diagnosis of GREATER TROCH BURSITIS L HIP AND FX L FOOT METATARSAL for a total of 8 visit(s). Discharge Date: Please see the following information for a summary of their discharge status. Subjective: PATIENT REPORTS HER FOOT AND HER HIP ARE A LOT BETTER. HIP BURSITIS FLARES UP OCCASSIONALLY. PATIENT PLANS TO KEEP UP WITH HER AQUATIC THERAPY PROGRAM ABOUT 2 DAYS A WEEK. QUESTIONING IF IT WOULD BE OK TO DO SOME LAND/MACHINE EX'S WITH HER MEMBERSHIP HOWEVER PATIENT REPORTS SHE IS SUPPOSED TO FOLLOW UP WITH DR. FALK FOR HER SPINE AFTER HE RECEIVES ALL OF HER MEDICAL RECORDS FROM [facility]. RLE Pain Intensity (Out of 10): 4 LLE Pain Intensity (Out of 10): 4 % Improvement: 90 Objective/Function: PATIENT WAS SEEN TODAY FOR RE-ASSESSMENT OF PROGRESS TOWARD THE SET PT GOALS AND THE NEED FOR FURTHER PHYSICAL THERAPY VS READINESS FOR DISCHARGE. PATIENT APPEARS TO BE A GOOD CANDIDATE TO ADD LAND EX TO HER POC BUT WILL FOLLOW UP WITH DR. FALK FIRST AND DISCUSS WITH HIM. UPON EXAM TODAY THERE ARE NO SIGNIFICANT OBJECTIVE FUNCTIONAL CHANGES BUT SHE IS REPORTING MUCH LESS HIP PAIN AND IS INDEP WITH A POOL PROGRAM. Goal 1:: DECREASE C/O L HIP PAIN TO EASE ADL'S Goal Progress: Goal Met Goal 2:: IMPROVE STANDING, WALKING, SITTING AND ADL FUNCTION Goal Progress: Not Progressing Goal 3:: PATIENT WILL BE INDEP WITH A HEP FOR CONTINUED IMPROVEMENT ONCE FORMAL PHYSICAL THERPAY CONCLUDES. Goal Progress: Progressing Plan: HOLD CHART PENDING FOLLOW UP WITH DR. FALK. CONSIDER ADDING LAND EXERCISE IN GYM TO SUPPLEMENT CURRENT AQUATIC THERAPY PROGRAM IF ORDERS REC'D. If there are questions or concerns regarding this patient's physical therapy, please feel free to call me at [phone]. Thank you for the referral of this patient. Sincerely, Alivia Key, PT, Cert MDT Balance/Gait/Functional tests - Balance/Special Test Scores Lower Extremity Functional Score: 36
== END 2021-12-26 19:00 | disposition home or self-care (01) ==
LOC: PT 12:30
PROVIDERS: PCP Internal Medicine; Referring Provider Orthopaedic Surgery Sports Medicine; Visit Provider Orthopaedic Surgery Sports Medicine
DX: S92.302D Fracture of unspecified metatarsal bone(s), left foot, subsequent encounter for fracture with routine healing (principal); M70.62 Trochanteric bursitis, left hip
CPT/HCPCS: 97113; 97162; 97164

== ENCOUNTER → 2022-01-30 | Outpatient (CLI) | payer MEDICARE, SELFPAY ==
--- NOTE | 2022-01-30 13:12 | MRI_ITS ---
INDICATION: hepatic cysts -- Pt refused contrast for multiple personal reasons EXAMINATION: MR Abdomen W/O Contrast TECHNIQUE: Multiplanar and multisequence MR images of the abdomen were obtained. IV Contrast Dosage and Agent: None COMPARISON: 04/29/2021. The visualized lung bases are unremarkable. The visualized portions of the heart are within normal limits. Scattered hepatic cysts, unchanged in size since prior. The largest of these measures 11.1 x 11.1 x 8.9 cm. Normal gallbladder and extrahepatic biliary system. Normal spleen. Normal pancreas. Normal bilateral adrenal glands. Normal right kidney. Normal left kidney. Normal visualized stomach. Normal small intestine. Normal colon. Normal abdominal aorta. Normal inferior vena cava. Normal retroperitoneum. Normal abdominal wall. There are diffuse degenerative changes of the visualized lumbar spine. MRI/Abdomen without Contrast IMPRESSION: Multiple hepatic cysts, unchanged in size since 2020, Electronically Signed: Kwesi Richmond MD at 16:42 EST ,
== END | disposition home or self-care (01) ==
LOC: MRI 13:12
PROVIDERS: PCP Internal Medicine; Referring Provider Nurse Practitioner Adult Health; Visit Provider Nurse Practitioner Adult Health
DX: K76.89 Other specified diseases of liver (principal)
CPT/HCPCS: 74181

== ENCOUNTER 2022-02-13 15:30 | Emergency (ER) | payer MEDICARE, SELFPAY ==
[2022-02-13 15:31] VITALS: BP 156/115; PULSE 95; RESP 16; TEMP 36.9; O2SAT 97; BMI 30.7
--- NOTE | 2022-02-13 16:30 | ED.RN ---
THIS RN ASSESSED PT. PT REPORTS NUMBNESS, TINGLING, AND COOLNESS IS NORMAL FOR HER IN BILATERAL LOWER EXTREMITIES. GAIT IS ALWAYS NONSTEADY DUE TO HX OF SPINAL SURGERY.
--- NOTE | 2022-02-13 17:14 | EDS_ITS ---
HPI History of Present Illness Chief Complaint: Lower Extremity Injury Informant: patient and family Narrative Narrative: Patient presents with positive ultrasound on right lower extremity. This patient has a known history of sticky blood. She has had prior PEs. She has had DVTs. Over the summer she had a DVT in the right leg. She has an allergy to Coumadin that makes her skin pale. She has reaction to Xarelto and Eliquis that makes her very bizarre. For this reason she is always been maintained on Lovenox. She has 80 mg shots at home. She has 24 of them currently and has a prescription for more if needed. She had a right-sided DVT over the summer. She was treated for a few months she believes with Lovenox. She has been off Lovenox for about 2 months now. She had an ultrasound earlier today as part of follow-up study to make sure that her clot had cleared. However, this did show DVT in common femoral popliteal etc. veins in the right leg. But she states she is not having any pain. She admits that her sensation is altered due to a spinal cord lesion but she still has no discomfort. She has no swelling. She has no color changes. She states actually her leg is been getting progressively better. She also has no chest pain or trouble breathing. I have checked with our staff, we have not gotten a call from anyone at the [facility] regarding this. They did evidently send a copy of the results over which I have read. [facility] Medical History Bladder sphincter dyssynergia DVT (deep venous thrombosis) Fracture of metatarsal of left foot, closed Greater trochanteric bursitis of left hip Hepatic cyst Hypertension Left foot pain Polycystic liver disease Pulmonary embolism Spine pain, lumbar Urinary incontinence Home Medications acetaminophen 500 mg tablet (Tylenol Extra Strength) 1,000 mg PO Q6H PRN PRN pain 03/13/18 [History Last Taken 03/13/18] ergocalciferol (vitamin D2) 1,250 mcg (50,000 unit) capsule (Vitamin D2) 50,000 unit PO MCCLELLAN supplement 03/13/18 [History Last Taken 03/06/18] triamterene 37.5 mg-hydrochlorothiazide 25 mg capsule 1 tab PO DAILY heart 03/13/18 [History Last Taken 03/13/18] furosemide 20 mg tablet 5 mg PO DAILY PRN 11/15/20 [History Last Taken Unknown] enoxaparin 80 mg/0.8 mL subcutaneous syringe (Lovenox) 80 mg subcut DAILY 11/20/21 [History Last Taken Unknown] Allergy/AdvReac Type Severity Reaction Status Date / Time Cephalosporins Allergy Rash Verified 02/13/22 16:27 codeine Allergy Rash Verified 02/13/22 16:27 latex Allergy Rash Verified 02/13/22 16:27 scopolamine Allergy Other Verified 02/13/22 16:27 warfarin [From Coumadin] Allergy Other Verified 02/13/22 16:27 Social History Smoking Status: Former smoker ROS ROS ED Constitutional Constitutional ED: Denies chills, fever(s) or subjective ENT ENT ED: Denies rhinorrhea or sore throat Cardiovascular Cardiovascular: Denies chest pain, palpitations or racing heartbeat Respiratory/Chest Respiratory/Chest: Denies cough, dyspnea or dyspnea on exertion Gastrointestinal Gastrointestinal: Denies nausea or vomiting Musculoskeletal Musculoskeletal: Denies arthralgias or neck pain Integumentary Denies rash Neurologic Neurologic: Reports paresthesias and other Details: 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 This is not new or different. ; Denies headache(s) or weakness Allergic/Immunologic Allergic/Immunologic ED: Denies urticaria EXAM Physical Exam Const Vital Signs: 02/13/22 15:31 Temperature 98.4 F Temperature Source Temporal Pulse Rate 95 Respiratory Rate 16 Blood Pressure 156/115 H Blood Pressure Mean 128 Pulse Ox 97 Oxygen Delivery Method Room Air Positive well nourished and well developed General Appearance ED: well developed HEENT Reports moist mucous membranes Neck supple Chest Wall inspection of chest normal Resp normal respiratory effort, no retractions and clear to auscultation bilaterally Effort and Inspection: Negative for pain with movement Auscultation: Negative for rales, rhonchi or wheezes Cardio regular rate and regular rhythm GI non-tender and non-distended Extremity Extremity Narrative: Patient has no edema. Her legs are the same size. There is no change in color of duskiness, blue, macias, white. No phlegmasia cerulea dolens. No phlegmasia cerulea albicans. Pulses are intact. Neuro Sensorium / Orientation: alert Skin no wounds MDM MDM MDM Narrative Medical decision making narrative: I had a long talk with patient and her . My suspicion is that she was sent over here due to a relatively proximal DVT. However, I do not have the actual images. I have not been contacted by anybody about this. When I talked to the patient and they are not sure who ordered the test. I explained to them that sometimes we will admit people who have a high proximal clot. However, this patient is asymptomatic. This test is not done due to edema or pain or any other symptoms. This test was actually done to verify clearance of her clot that was in the same leg. She has been off her meds for 2 months. We have no idea when this clot initiated. I explained that we can certainly admit her and place her on IV heparin. However, she has Lovenox at home. It appears to be the appropriate dose. She knows how to take it. She has further prescriptions. Her vitals are normal. She has no chest pain or dyspnea. Admitting her would also expose her to other illnesses that she does not currently have. I think the overall benefit of admission is outweighed by the risk. She will take her Lovenox. She has it at home and can take it within the hour. She will follow-up with her vascular surgeons. If they want to schedule a clot removal procedure in the future they can certainly do that. However, that does not need to be done acutely at this time. Discharge Plan Triage Chief Complaint: Lower Extremity Injury ED Provider: Wilian Harris Dx/Rx/DC Orders Clinical Impression: Acute deep vein thrombosis (DVT) of right lower extremity Instructions: ED Deep Vein Thrombosis (DVT) Prescriptions: No Action furosemide 20 mg tablet 5 mg PO DAILY PRN enoxaparin [Lovenox] 80 mg/0.8 mL syringe 80 mg subcut DAILY triamterene-hydrochlorothiazid 37.5-25 capsule 1 tab PO DAILY acetaminophen [Tylenol Extra Strength] 500 MG tablet 1,000 mg PO Q6H PRN PRN (Reason: pain ) ergocalciferol (vitamin D2) [Vitamin D2] 50,000 UNIT capsule 50,000 unit PO MCCLELLAN Primary Care Provider: Alexandria Garza Referrals: Alexandria Garza MD [Primary Care Provider] - 3-5 Days Activity Restrictions/Additional Instructions: Swelling, pain, color changes, chest pain, shortness of breath, fevers, bleeding or other concerns. Disposition Disposition: Home, Self Care
[2022-02-13 17:26] VITALS: BP 140/65; PULSE 65; RESP 18; O2SAT 96
== END 2022-02-13 17:29 | disposition home or self-care (01) ==
PROVIDERS: Emergency Provider Emergency Medicine; PCP Internal Medicine; Visit Provider Emergency Medicine
DX: I82.401 Acute embolism and thrombosis of unspecified deep veins of right lower extremity (principal); I10 Essential (primary) hypertension; Z79.01 Long term (current) use of anticoagulants; Z87.891 Personal history of nicotine dependence; R20.2 Paresthesia of skin
CPT/HCPCS: 99282

== ENCOUNTER 2023-03-15 12:00 | Outpatient (RCR) | payer MEDICARE, SELFPAY ==
--- NOTE | 2023-01-12 12:52 | HP.PTEVAL_ITS ---
Patient's Visit Information Visit Information Visit Information: LUL MCNEILL is a 77 year old F referred to Physical Therapy by Dr. Ashu Hua DO with a diagnosis of Weakness adn poly neuropathy. Date of Evaluation: 01/12/23 Physical Therapist: Fermín Lincoln, DPT, OCS, CSCS Visit Plan Frequency: 2x /Week Duration: 4-6 Weeks Plan: 2x/week for 4-6 weeks...please teach LB ROM supine avoiding excessive extension, please teach HS and gastroc stretches, please teach mat core strength, please teach standing leg streght and balance/postural strength. Please work all exercises to HEP at sink and on bed with pics and list. Montior for back pain which happened with extension and was very limiting during the eval. 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 Got numbness in both legs from waist down ever since(was just at ankles and is creeping up. Doctor said that is going to happen. No regular exercise at home. I have macular degeneration and gets eye injections. Sees Basali and gets injections in SI joint. Goes to [facility] for accupuncture which has not helped. Uses wh walker to get around and needs it. Has used it for a long time and used to use cane. Balance is what causes her to use that. Pain is at night sometimes in LB at SI joint. Feels like an electric shock. Sleeps OK once she gets to sleep. MH helps. Lives with . Two story house but all on one floor. Two steps to enter with handles. Husbnad moves walker. Has multiple walker at home. Does not drive. Basic ADLS: Dresses self, bathroom slef, showers I holding onto walker and having a new one installed. Not employed. Cooks and cleans at home slowly. Hobbies: [employer] at [employer] but it was hard on her back. Pain LB/SI: Pain Intensity (Out of 10): 1 Pain Intensity Range: 0 and 9 Comment: Lying flat is comfortable Objective Objective: Posture is flat lordosis, Tender slightly paraspinals. HS tight B, gastroc B tight at 0 DF. LB AROM ext max limited and painful in B hips. Causes some spasms and pain in hips and down legs that patient needs to sit for. SB and flexion much better. Stand balance is able, hesitant and shaky but able with ec. Able to walk 3 steps slow hesitant in high gaurd without AD and short step. Looks down due to neuropathy. uses 3 wh walker mod i today. Up and down one step with R LE and holding on two hands. hip strength 3/5 abd, flexion and ext, knee 4-/5 B, ankles 4/5 B. Sensation in LE is poor to gross light touch below hips. reflexes 0/3 achilles and patella B today. coordination to reciprocal toe and heel tap is good. - SLR, - slump needs wh walker to do FGA but can do all the activities holding onto walker only. Balance/Special Test Scores Lower Extremity Functional Score: 28 Goals Goal 1:: I approp HEP for balance, LE strength, core strengh, LB ROM and HS, gastroc stretches to manage condition. Goal Time Frame: 4-6 Weeks Goal 2:: Patient feel LB and hip pain 75% better at 2/10 at worst and no need to stop what she is doing for a week. Goal Time Frame: 4-6 Weeks Goal 3:: LEFS 48 to show improved mobility Goal Time Frame: 4-6 Weeks Rehabilitation Potential Physical Therapy Diagnosis: LE diminished sensation and weakness causing mobility deficits and balance deficits creating weakness and tightness and back pain. Rehabilitation Potential: Fair Anticipated Interventions Patient/Client Instruction: Educate patient on: Condition and Plan of Care For the Purpose of:: To decrease pain, To increase ROM, To improve nutrient delivery to tissue, To improve muscle performance and motor function, To increase tolerance to activity/condition/position, To improve ability of physical actions for home/community/work/leisure and To improve gait and locomotor functions Therapeutic Exercise to Include: Strength training, Balance training, Postural training, Flexibilty training, Gait and locomotor training, Passive ROM, Active ROM and Dynamic Lumbar Stabilization For the Purpose of:: To decrease pain, To increase ROM, To improve nutrient delivery to tissue, To increase oxygenation perfusion, To improve muscle performance and motor function, To increase tolerance to activity/condition/position, To improve ability of physical actions for home/community/work/leisure, To improve gait and locomotor functions and To improve safety Text: Thank you for the opportunity to evaluate your patient. For Medicare and Medicare HMO plans, please review the plan of care and approve it. It will need to be FAXED BACK to us at [phone] for Medicare purposes. For Medicare only, by signing this I certify the plan of care. Please let me know if there are questions or concerns regarding this plan of care. Physician Signature: Date:
--- NOTE | 2023-02-18 14:25 | HP.PTREVAL_ITS ---
Re-Evaluation Intro: Dr. Ashu Hua, DO, It has been my pleasure to treat LUL MCNEILL over the last 4 visits for Weakness adn poly neuropathy. Please see the progress note below for an update on the physical therapy plan of care! Subjective Subjective: PATIENT REPORTS TEMPORARY INCREASED PAIN THAT RESOLVED WITH HEAT AFTER ABOUT AN HOUR AT HOME AFTER LAST VISIT. OVER-ALL NO CHANGES SINCE INTITIAL EVAL. PATIENT REPORTS THE NUMBNESS AND WEAKNESS IS CREEPING UP HER LEGS AND THAT IS WHAT BROUGHT HER BACK TO PT. PATIENT REPORTS THAT AFTER HER LAST EPISODE OF CARE IN PT SHE CONTINUED WITH EX ON HER OWN IN THE WATER AND ON LAND TOLERATED ON A REGULAR BASIS (2-3 TIMES A WEEK IN THE WATER AND A COUPLE TIMES A WEEK ON LAND HERE AT [facility]) UNTIL LAST SUMMER WHEN SHE STARTED TO FEEL SOMEWHAT UNSAFE DUE TO SOME EYE PROBLEMS. SHE REPORTS SHE REALLY DIDN'T DO MUCH ON LAND/MACHINES BECAUSE SHE WOULD HURT AFTER. SHE STILL CONTINUED IN THE POOL UNTIL ABOUT OCT/NOV 2022. PATIENT REPORTS SHE WANTS TO GET BACK ON TRACK WITH GETTING BACK IN THE POOL AND DOING EX'S AT HOME EVERY DAY OR EVERY DAY IN BETWEEN. PATIENT REPORTS SHE IS GETTING SHOTS IN HER EYES NOW THAT ARE HELPING. SHE DENIES ANY FALLS. SHE REPORTS SHE WAS USING A 3 WHEELED WALKER IN THE LOCKER ROOM BEFORE BUT SHE HAS A 4 WHEELED WALKER THAT GIVES HER MORE SUPPORT THAT SHE CAN USE IN THE POOL AREA NOW. Objective Objective/Function: PATIENT WAS SEEN TODAY FOR RE-ASSESSMENT OF PROGRESS TOWARD THE SET PT GOALS AND THE NEED FOR FURTHER PHYSICAL THERAPY VS READINESS FOR DISCHARGE. UPON EXAM TODAY: PATIENT IS STARTING TO RE-ESTABLISH AND EXERCISE PROGRAM AND IS A GOOD CANDIDATE TO CONTINUE PT WORKING TOWARD THE SAME GOALS WITH THE SAME POC WITH THE ADDITION OF AQUATIC THERAPY. UPON ASSESSMENT TODAY, THERE ARE NO SIGNIFICANT CHANGES SINCE INTIAL EVALUATION BUT PATIENT HAS ONLY ATTENDED TO VISITS. SHE FEELS SHE WILL BE ABLE TO COME REGUALRLY NOW. Plan Plan Plan: Aquatic Therapy 2x's a week and land PT 1x/wk...please teach LB ROM supine avoiding excessive extension, please teach HS and gastroc stretches, please teach mat core strength, please teach standing leg strength and balance/postural strength. Please work all exercises to HEP at sink and on bed with pics and list. Montior for back pain which happened with extension and was very limiting during the eval. Balance/Gait/Functional tests Balance/Special Test Scores Lower Extremity Functional Score: 28 Goals Goals Goal 1:: I approp HEP for balance, LE strength, core strengh, LB ROM and HS, gastroc stretches to manage condition. Goal Time Frame: 4-6 Weeks Goal 2:: Patient feel LB and hip pain 75% better at 2/10 at worst and no need to stop what she is doing for a week. Goal Time Frame: 4-6 Weeks Goal 3:: LEFS 48 to show improved mobility Goal Time Frame: 4-6 Weeks Anticipated Interventions Anticipated Interventions Patient/Client Instruction: Educate patient on: Condition and Plan of Care For the Purpose of:: To decrease pain, To increase ROM, To improve nutrient delivery to tissue, To improve muscle performance and motor function, To increase tolerance to activity/condition/position, To improve ability of ph ysical actions for home/community/work/leisure and To improve gait and locomotor functions Therapeutic Exercise to Include: Strength training, Balance training, Postural training, Flexibilty training, Gait and locomotor training, Passive ROM, Active ROM and Dynamic Lumbar Stabilization For the Purpose of:: To decrease pain, To increase ROM, To improve nutrient delivery to tissue, To increase oxygenation perfusion, To improve muscle performance and motor function, To increase tolerance to activity/condition/position, To improve ability of physical actions for home/community/work/leisure, To improve gait and locomotor functions and To improve safety Re-Evaluation Ending Re-evaluation ending: Please do not hesitate to contact me at [phone] by phone or if you have questions or concerns regarding this new plan of care! Sincerely, Alivia Key, PT, Cert MDT
--- NOTE | 2023-03-17 12:39 | HP.PTDCSUM ---
Discharge Summary D/C summary: It has been my pleasure to treat LUL MCNEILL referred by Dr. Ashu Hua DO, with the diagnosis of Weakness and poly neuropathy for a total of 14 visit(s). Discharge Date: 03/17/23 Please see the following information for a summary of their discharge status. Subjective Subjective: PATIENT REPORTS SHE FEELS BETTER AND THE THERAPY HAS HELPED HER BECOME INDEP WITH POOL EX'S AGAIN. SHE STATES SHE NOW HAS THE CONFIDENCE TO RESUME COMING INDEP'LY. PATIENT PLANS TO COME TO TO THE POOL ON WEDNESDAYS AND SATURDAYS NOW TO EXERCISE ON HER OWN. Pain LB/SI: Pain Intensity (Out of 10): 8 Overall Improvement % Improvement: 70 Objective Objective/Function: PATIENT WAS SEEN TODAY FOR RE-ASSESSMENT OF PROGRESS TOWARD THE SET PT GOALS AND THE NEED FOR FURTHER PHYSICAL THERAPY VS READINESS FOR DISCHARGE. PATIENT REPORTS HER GOAL WAS TO BE ABLE TO GET HELP TO SAFELY GET BACK TO EXERCISING IN THE POOL AGAIN AND SHE FEELS THAT HAS BEEN ACHIEVED. PATIENT IS INDEP WITH A POOL EXERCISE PROGRAM BUT OTHERWISE, UPON EXAM, THERE ARE NO SIGNIFICANT CHANGES IN HER FUNCTION COMPARED TO INITIAL EVALUATION. Goals Goal 1:: I approp HEP for balance, LE strength, core strengh, LB ROM and HS, gastroc stretches to manage condition. Goal Progress: Goal Met Goal 2:: Patient feel LB and hip pain 75% better at 2/10 at worst and no need to stop what she is doing for a week. Goal Progress: Not Progressing Goal 3:: LEFS 48 to show improved mobility Goal Progress: Not Progressing Plan Plan: D/C. PATIENT AGREEABLE. D/C Information d/c sentence: If there are questions or concerns regarding this patient's physical therapy, please feel free to call me at [phone]. Thank you for the referral of this patient. Sincerely, Alivia Key, PT, Cert MDT Balance/Gait/Functional tests Balance/Special Test Scores Lower Extremity Functional Score: 30 Improvement % Improvement: 70
== END 2023-03-15 19:00 | disposition home or self-care (01) ==
LOC: PT 12:00
PROVIDERS: PCP Internal Medicine; Referring Provider Internal Medicine Hematology & Oncology; Visit Provider Internal Medicine Hematology & Oncology
DX: R29.898 Other symptoms and signs involving the musculoskeletal system (principal); G62.89 Other specified polyneuropathies
CPT/HCPCS: 97110; 97113; 97163; 97164

== ENCOUNTER → 2024-03-29 | Outpatient (CLI) | payer MEDICARE, SELFPAY ==
[2024-03-29 13:47] LABS: Absolute Lymphocyte Count 1.48 X10^3/uL (0.83-4.51); Absolute Neutrophil Count 4.5 X10^3/uL (2.0-7.7); Basophil# 0.03 X10^3/uL; Basophil% 0.4 % (0-1); Eosinophil# 0.17 X10^3/uL; Eosinophils% 2.5 % (0-5); Hematocrit 45.8 % (37-47); Hemoglobin 14.6 g/dL (12.0-15.0); Lymphocyte # 1.48 X10^3/ul (0.83-4.51); Lymphocyte % 21.4 % (19-41); Mean Corp Hgb Conc 31.9 g/dL (32-36); Mean Corpuscular Hgb 30.6 pg (27.0-32.0); Mean Platelet Vol. 10.4 fl (6.2-12.0); Monocyte# 0.73 X10^3/uL; Monocyte% 10.5 % (0-10); NRBC Flagged by Analyzer 0 % (0-5); Neutrophil # 4.49 X10^3/uL (2.7-7.7); Neutrophil % 64.9 % (47-70); Platelet Count 198 K/mm3 (150-450); RBC Distribution Width CV 12.5 % (11.6-14.6); RBC Distribution Width SD 44.3 fl (35.1-43.9); Red Blood Count 4.77 M/mm3 (4.2-5.4); White Blood Count 6.9 K/mm3 (4.4-11.0)
[2024-03-29 14:02] LABS: Vitamin D,25 Hydroxy 54.6 ng/mL
[2024-03-29 14:08] LABS: CRP < 2.90 mg/L (0.0-3.0); Cholesterol 170 mg/dL (200); High Density Lipoprotein 60 mg/dL; Triglycerides 116 mg/dL; Very Low Density Lipoprotein 23 mg/dL (5-40)
[2024-03-29 14:30] LABS: Hemoglobin A1c 5.6 % (3.8-5.6)
[2024-03-29 14:36] LABS: International Normalized Ratio 1.1; Prothrombin Time (Protime)PT. 13.9 SECONDS (11.7-14.9)
[2024-03-31 04:07] LABS: AFP, Tumor Marker < 1.8 ng/mL (0.0-9.2)
== END | disposition home or self-care (01) ==
LOC: LAB 13:01
PROVIDERS: PCP Internal Medicine; Referring Provider Internal Medicine; Visit Provider Internal Medicine
DX: C22.0 Liver cell carcinoma (principal); Q44.6 Cystic disease of liver; R10.9 Unspecified abdominal pain; I10 Essential (primary) hypertension; M79.604 Pain in right leg; M79.605 Pain in left leg
CPT/HCPCS: 36415; 80061; 82105; 82306; 83036; 85025; 85610; 86140

== ENCOUNTER → 2024-05-01 | Outpatient (CLI) | payer MEDICARE, SELFPAY ==
--- NOTE | 2024-05-01 10:13 | MRI_ITS ---
PROCEDURE: ABDOMEN WITHOUT CONTRAST (MRIABD), 05/01/2024 REASON FOR EXAM: MULTIPLE LIVER CYSTS INCLUDING 1 ABOUT 11 CM TECHNIQUE: Multiplanar multisequence MRI abdomen was performed without IV contrast. COMPARISON: 01/30/2022; images only are available for review, the report is not available at the time of dictation. FINDINGS: Note evaluation of the vasculature and abdominal viscera is limited in the absence of IV contrast. Coronal T2 and axial T2 fat sat sequences were not performed. Liver: Multiple T2 bright T1 dark presumed cysts are incompletely evaluated in the absence of IV contrast. Largest in the subcapsular aspect of segment /VII measures 10.8 x 8.6 x 11.0 cm, previously roughly 10.6 x 8.3 x 11.1 cm although evaluation was limited by motion. A lobulated but otherwise similar appearing lesion slightly more anteriorly measures 2.1 x 2.9 cm, also grossly unchanged allowing for motion previously. Spleen: Unremarkable. Gallbladder: Unremarkable. Pancreas: Unremarkable. Adrenals: Unremarkable. Kidneys: Small T2 bright and T1 dark presumed renal cyst on the right, incompletely evaluated in the absence of IV contrast, also grossly unchanged.. Bowel: Diverticulosis. Lymph nodes: Unremarkable. Vasculature: Retroaortic left renal vein, normal variant.. Mild ectasia of the distal infrarenal abdominal aorta to 2.4 cm. Peritoneum: Unremarkable. Body Wall: Unremarkable. Bones: Artifact presumably related to bilateral hip arthroplasty. Multilevel spondylosis. Other: Mild cardiomegaly and small pericardial effusion. MRI/Abdomen without Contrast IMPRESSION: 1. Grossly unchanged hepatic and right renal lesions presumably reflecting cyst s compared with 01/30/2022, incompletely characterized in the absence of IV contrast. 2. Additional description as above. Reading Location: [id number]
== END | disposition home or self-care (01) ==
LOC: MRI 10:11
PROVIDERS: PCP Internal Medicine; Referring Provider Internal Medicine; Visit Provider Internal Medicine
DX: R10.9 Unspecified abdominal pain (principal); Q44.6 Cystic disease of liver; K76.89 Other specified diseases of liver
CPT/HCPCS: 74181